=== PATIENT | female | born 1980 | race Caucasian/White ===

== ENCOUNTER 2017-04-21 17:32 | Emergency (ER) | payer OTHER ==
[~2017-04-21] VITALS: Ht 157.5 cm; Wt 105.5 kg
[~2017-04-21 17:32] MED LIST: ALBUAER2 INH; IBUP-103 PO; SYMIN/8045 INH
[2017-04-21 17:42] VITALS: TEMP 36.8; Ht 157.5 cm; Wt 105.5 kg
[2017-04-21] MEDS ORDERED: SODIUM CHLORIDE 0.9% 1000ML 1,000 ML IV STA (18:17)
[2017-04-21] MEDS ORDERED: MOME200A INH (18:20)
[2017-04-21] MEDS ORDERED: MONT1TAB3 PO (18:21)
[2017-04-21 18:50] LABS: BASO % 0.5 %; BASO ABS # 0.05 K/uL (0-0.2); COMPLETE YES; EOS % 2.5 %; HEMATOCRIT 39.4 % (37-47); IG% 0.6 %; LYMPH % 27.4 %; LYMPH ABS # 3.01 K/uL (1.2-3.4); MEAN CELL VOLUME 91.8 fL (80-100); MEAN CORPUSCULAR HEMOGLOBIN 28.9 pg (25-34); MEAN CORPUSCULAR HGB CONC 31.5 g/dl (32-36); MEAN PLATELET VOLUME 10.4 fL (7.4-10.4); MONO % 5.9 %; NEUT % 63.1 %; PLATELET COUNT 187 K/uL (130-400); RED BLOOD COUNT 4.29 M/uL (4.2-5.4); WHITE BLOOD COUNT 10.99 K/uL (4.8-10.8)
[2017-04-21 19:03] LABS: URINE APPEARANCE CLEAR (CLEAR); URINE BILIRUBIN NEG (NEG); URINE COLOR YELLOW; URINE EPITHELIAL CELL AUTO 20-30 /lpf (0-5); URINE NITRITE NEG (NEG); URINE SPECIFIC GRAVITY 1.028 (1.000-1.030); UROBILINOGEN NEG (NEG)
[2017-04-21 19:14] LABS: ALT/SGPT 24 U/L (12-78); AST/SGOT 16 U/L (15-37); BLOOD UREA NITROGEN 16 mg/dl (7-18); BUN/CREATININE RATIO 21.9 (10-20); CALCIUM 8.5 mg/dl (8.5-10.1); CARBON DIOXIDE 27 mmol/L (21-32); CHLORIDE 107 mmol/L (98-107); CREATININE 0.72 mg/dl (0.60-1.20); GLUCOSE 97 mg/dl (70-99); POTASSIUM 3.9 mmol/L (3.5-5.1); SODIUM 140 mmol/L (136-145)
[2017-04-21 19:16] LABS: ALKALINE PHOSPHATASE 77 U/L (45-117)
[2017-04-21 19:18] LABS: MANUAL MICROSCOPIC REQUIRED? NO; REVIEW REQ? NO
--- NOTE | 2017-04-21 19:48 | EMERGENCY ROOM VISIT NOTE ---
History First contact with patient: 17:56 Chief Complaint: HYPERTENSION Stated Complaint: SENT BY DOCTOR History of Present Illness The patient is a 36 year old female who presents to the Emergency Room with complaints of headache. Patient states this morning at about 8 AM she started feeling dizzy, nauseated, and had loss of vision in her left eye with decreased vision in her right eye. She also had associated numbness of her left face, as well as tingling in her left leg and right arm. She states her symptoms lasted for approximately 2-1/2 hours and then resolved. After her symptoms resolve she began to develop a mild headache that she describes as a squeezing, constant , nothing makes it better or worse, and 3/10. She states she thought she might be getting a headache when her symptoms started so she took ibuprofen this morning at 8:30 AM. She has not taken anything since that time. She does not have a history of diagnosed migraines, but does get frequent headaches similar to this, though she states she has never had any of these other symptoms with her vision or the numbness/tingling. She states she was at work when this started, had her blood pressure checked and it was elevated with the top number in the 150s. She does not have any diagnosed history of hypertension and states her blood pressure usually runs low. She did see her PCP today who sent her to the emergency department to have an MRI done. She denies any neck pain, back pain, current blurry or double vision, fevers or chills, nausea or vomiting , chest pain, shortness of breath, abdominal pain, urinary symptoms, or rash. Review of Systems A complete 10 point review of systems was reviewed with the patient with pertinent positives and negatives as per history of present illness. All else were negative. Past Medical/Surgical History Medical Problems: (1) arrest of descent (2) Asthma, Unspecified, W (Acute) Exacerbation (3) Lumbago (4) Morbid Obesity Surgical Problems: (1) History of appendectomy (2) History of delivery Social History Smoking Status: Never Smoker Alcohol Use: occasionally Marital Status: Housing Status: lives with family Occupation Status: employed Current/Historical Medications Scheduled Albuterol (Ventolin Hfa), 2 PUFFS INH DIRECTED Mometasone Furoate-Formoterol (Dulera 200/5 Mcg), 2 PUFFS INH BID Montelukast Sodium (Singulair), 10 MG PO QAM Physical Exam Vital Signs Date Time Temp Pulse Resp B/P (MAP) Pulse Ox O2 Delivery O2 Flow Rate FiO2 04/21/17 23:36 83 97 04/21/17 23:31 133/93 04/21/17 23:21 83 98 04/21/17 23:06 76 98 04/21/17 23:01 123/80 04/21/17 22:51 75 99 04/21/17 22:36 74 99 04/21/17 22:31 78 121/87 99 04/21/17 22:16 88 100 04/21/17 22:01 79 121/84 99 04/21/17 21:46 76 99 04/21/17 21:41 73 99 04/21/17 21:39 147/90 04/21/17 20:23 149/107 04/21/17 20:11 77 100 04/21/17 20:06 128/77 04/21/17 19:18 73 100 04/21/17 19:03 69 99 04/21/17 18:58 70 18 126/82 99 Room Air 04/21/17 17:42 36.8 78 20 135/76 98 Room Air Right Eye Acuity: 20/20 -2, corrected Left Eye Acuity: 20/20, corrected Physical Exam CONSTITUTIONAL: No acute distress. Well appearing and well nourished. Alert and oriented X 4 with normal affect. HEENT: Normocephalic, atraumatic. Pupils equal, round and reactive to light, EOMI. TMs normal. Pharynx normal. Moist mucus membranes. NECK: Supple, full active range of motion without discomfort. RESPIRATORY: Clear to auscultation bilaterally with no wheezing, crackles, rhonchi or stridor. Equal expansion bilaterally. CARDIOVASCULAR: Regular rate and rhythm with no murmurs, rubs or gallops. Normal peripheral perfusion. No edema. GASTROINTESTINAL: Soft, nontender, nondistended. Bowel sounds present in all quadrants. MUSCULOSKELETAL: Full range of motion of all joints without discomfort. INTEGUMENTARY: No rash or other significant dermatologic conditions noted. NEUROLOGIC: Cranial nerves II-XII grossly intact. No focal neurologic deficits noted. Normal motor, normal sensation, normal coordination, normal speech, normal gait. Medical Decision & Procedures ER Provider Diagnostic Interpretation: CT OF THE HEAD WITHOUT CONTRAST CLINICAL HISTORY: Headache. COMPARISON STUDY: None. CT DOSE: 537.48 mGy.cm TECHNIQUE: Helical axial images of the head were obtained without IV contrast. Automated exposure control was utilized for the study. A dose lowering technique was utilized adhering to the principles of ALARA. FINDINGS: No acute intracranial hemorrhage, midline shift or mass effect is present. Ventricular system is normal. Basilar cisterns are patent. There are no extra-axial collections. Dudley-white differentiation is maintained. There are no findings to suggest acute dural sinus thrombosis or acute territorial infarct. There are no significant calvarial abnormalities. Mastoid air cells are clear. There is moderate mucosal thickening of the right sphenoid sinus. IMPRESSION: 1. No acute intracranial findings. 2. Mucosal thickening of the right sphenoid sinus. MRI OF THE BRAIN WITHOUT AND WITH IV CONTRAST CLINICAL HISTORY: Headache. COMPARISON STUDY: Head CT performed earlier today. TECHNIQUE: Utilizing a 1.5 Radha magnet and dedicated coil, multiplanar, multiecho imaging of the brain was performed pre and postcontrast administration. IV administration of 10 mL of Gadavist contrast was uneventful. FINDINGS: There are no areas of restricted diffusion. No acute intracranial hemorrhage, midline shift or mass effect is present. Ventricular system is normal. Basilar cisterns are patent. There are no extra-axial collections. Flow-voids for the major intracranial vessels are present. There is no intracranial mass or pathologic enhancement. There is moderate mucosal thickening of the right sphenoid sinus. Calvarial signal is maintained. Flow-voids for the major intracranial vessels are present. IMPRESSION: 1. Unremarkable MRI of the brain. 2. Right sphenoid sinus mucosal thickening. Laboratory Results 04/21/17 18:30 Red Blood Count 4.29, Mean Corpuscular Volume 91.8, Mean Corpuscular Hemoglobin 28.9, Mean Corpuscular Hemoglobin Concent 31.5, Mean Platelet Volume 10.4, Neutrophils (%) (Auto) 63.1, Lymphocytes (%) (Auto) 27.4, Monocytes (%) (Auto) 5.9, Eosinophils (%) (Auto) 2.5, Basophils (%) (Auto) 0.5, Neutrophils # (Auto) 6.94, Lymphocytes # (Auto) 3.01, Monocytes # (Auto) 0.65, Eosinophils # (Auto) 0.27, Basophils # (Auto) 0.05 04/21/17 18:30 Test 04/21/17 18:30 04/21/17 18:35 White Blood Count 10.99 K/uL (4.8-10.8) Red Blood Count 4.29 M/uL (4.2-5.4) Hemoglobin 12.4 g/dL (12.0-16.0) Hematocrit 39.4 % (37-47) Mean Corpuscular Volume 91.8 fL (80-100) Mean Corpuscular Hemoglobin 28.9 pg (25-34) Mean Corpuscular Hemoglobin Concent 31.5 g/dl (32-36) Platelet Count 187 K/uL (130-400) Mean Platelet Volume 10.4 fL (7.4-10.4) Neutrophils (%) (Auto) 63.1 % Lymphocytes (%) (Auto) 27.4 % Monocytes (%) (Auto) 5.9 % Eosinophils (%) (Auto) 2.5 % Basophils (%) (Auto) 0.5 % Neutrophils # (Auto) 6.94 K/uL (1.4-6.5) Lymphocytes # (Auto) 3.01 K/uL (1.2-3.4) Monocytes # (Auto) 0.65 K/uL (0.11-0.59) Eosinophils # (Auto) 0.27 K/uL (0-0.5) Basophils # (Auto) 0.05 K/uL (0-0.2) RDW Standard Deviation 51.1 fL (36.4-46.3) RDW Coefficient of Variation 15.3 % (11.5-14.5) Immature Granulocyte % (Auto) 0.6 % Immature Granulocyte # (Auto) 0.07 K/uL (0.00-0.02) Anion Gap 6.0 mmol/L (3-11) Est Creatinine Clear Calc Drug Dose 123.2 ml/min Estimated GFR () 124.9 Estimated GFR (Non- 107.7 BUN/Creatinine Ratio 21.9 (10-20) Calcium Level 8.5 mg/dl (8.5-10.1) Total Bilirubin 0.2 mg/dl (0.2-1) Direct Bilirubin < 0.1 mg/dl (0-0.2) Aspartate Amino Transf (AST/SGOT) 16 U/L (15-37) Alanine Aminotransferase (ALT/SGPT) 24 U/L (12-78) Alkaline Phosphatase 77 U/L (45-117) Total Protein 7.2 gm/dl (6.4-8.2) Albumin 3.5 gm/dl (3.4-5.0) Urine Color YELLOW Urine Appearance CLEAR (CLEAR) Urine pH 5.0 (4.5-7.5) Urine Specific [place] 1.028 (1.000-1.030) Urine Protein NEG (NEG) Urine Glucose (UA) NEG (NEG) Urine Ketones TRACE (NEG) Urine Occult Blood TRACE (NEG) Urine Nitrite NEG (NEG) Urine Bilirubin NEG (NEG) Urine Urobilinogen NEG (NEG) Urine Leukocyte Esterase NEG (NEG) Urine WBC (Auto) 1-5 /hpf (0-5) Urine RBC (Auto) 0-4 /hpf (0-4) Urine Hyaline Casts (Auto) 0 /lpf (0-5) Urine Epithelial Cells (Auto) 20-30 /lpf (0-5) Urine Bacteria (Auto) NEG (NEG) Urine Test NEG (NEG) Medications Administered Medications (Trade) Dose Ordered Sig/Adriano Route Start Time Stop Time Status Last Admin Dose Admin Sodium Chloride 1,000 ml @ 999 mls/hr Q1H1M STAT IV 04/21/17 18:17 04/21/17 19:17 DC 04/21/17 19:00 999 MLS/HR ECG Indication: other (hypertension) Rate (beats per minute): 67 Rhythm: normal sinus Findings: no acute ischemic change, no ectopy, other (rightward axis deviation) Change: no significant change (08/17/2010) Medical Decision CC: Patient presenting with complaint of headache and hypertension Interpretation of Labs: Mild leukocytosis, no anemia, no significant electrolyte abnormalities, normal renal function, normal liver enzymes, UA unremarkable, not . Differential Diagnosis: Includes, but not limited to migraine, tension headache , TIA, CVA, intracranial hemorrhage, aneurysm Medication Reconciliation: I attest that I have personally reviewed the patient' s current medication list. Vital signs review: I reviewed the patient's vital signs and interpret them as follows: T: Afebrile; BP: Hypertensive; HR: Within normal limits; RR: Within normal limits; Pulse Ox: Within normal limits on room air. Blood pressure screening: The patient was found to have an elevated blood pressure and was referred to their primary doctor for recheck and further treatment. Summary: Patient was evaluated at bedside, history of physical exam performed. Patient is alert and in no acute distress. Neurologic exam is normal with no focal deficits. Patient complains of a mild headache with photophobia. She denies any return of her other symptoms of visual changes, dizziness, nausea, or numbness/ tingling. Orders were placed at bedside for labs, urinalysis, EKG, IV fluid bolus, noncontrast CT of the brain, and MRI with and without contrast of the brain to evaluate for ICH/CVA. Patient discussed with Dr. Mukherjee, who agrees with my assessment and plan. Labs reviewed as above, fairly unremarkable. EKG reviewed, no acute ischemic changes and unchanged from previous EKG. CT imaging and MRI imaging reviewed, no acute abnormalities, specifically no sign of intracranial hemorrhage or stroke. I believe patient's symptoms may be related to an atypical presentation of migraine, given the onset of headache after the initial symptoms resolved. Unsure of the cause of elevated blood pressure, but no concerning EKG or lab findings at this time. Patient reassessed multiple times throughout ED stay, her headache is resolved after IV fluid bolus only and she reports all of her other symptoms have remained gone. Patient was instructed to follow closely with her PCP, and was also provided with contact for neurology. Patient was also instructed on return precautions should her symptoms return/ worsen, she verbalized understanding. Patient was discharged home in stable condition and ambulatory. Impression Primary Impression: Atypical migraine Departure Information Dispostion Home / Self-Care Condition GOOD Referrals Barb Anders M.D. (PCP) Neda Ochoa D.O. Patient Instructions ED Headache Migraine, My [facility] Additional Instructions Rest today and tomorrow in a quiet, peaceful, dark environment and get a full 8- 10 hrs of sleep tonight. Avoid loud noises, smoke/smoking, alcohol, bright lights, stress, or physical exertion today to minimize the chance the headache may return. Continue current medications as prescribed. Ibuprofen(Motrin, Advil) may be used for fever or pain. Use 600mg every six hours as needed. Take with food. Avoid using more than 2400mg in a 24 hour period. Do not use 2400mg per day for more than three consecutive days without physician direction. Prolonged inappropriate use can lead to stomach upset or ulcers. (AND/OR) Acetaminophen(Tylenol) may be used for fever or pain. Use 1000mg every 8 hours as needed. Avoid using more than 3000mg in a 24 hour period. Return to the ER for passing out, worsening headache, vision problems, numbness or weakness on one side of the body, slurring of your words, confusion, neck stiffness/pain, fevers, vomiting, worsening of your condition, or as needed. Follow up with your primary physician in 2-3 days for a recheck of your current condition. You may also follow-up with a neurologist regarding her symptoms, call for an appointment.
--- NOTE | 2017-04-21 20:01 | DIAGNOSTIC IMAGING REPORT ---
CT OF THE HEAD WITHOUT CONTRAST CLINICAL HISTORY: Headache. COMPARISON STUDY: None. CT DOSE: 537.48 mGy.cm TECHNIQUE: Helical axial images of the head were obtained without IV contrast. Automated exposure control was utilized for the study. A dose lowering technique was utilized adhering to the principles of ALARA. FINDINGS: No acute intracranial hemorrhage, midline shift or mass effect is present. Ventricular system is normal. Basilar cisterns are patent. There are no extra-axial collections. Dudley-white differentiation is maintained. There are no findings to suggest acute dural sinus thrombosis or acute territorial infarct. There are no significant calvarial abnormalities. Mastoid air cells are clear. There is moderate mucosal thickening of the right sphenoid sinus. IMPRESSION: 1. No acute intracranial findings. 2. Mucosal thickening of the right sphenoid sinus. Electronically signed by: Scott Burns M.D. 04/21/2017 8:00 PM Dictated Date/Time: 04/21/2017 7:58 PM
[2017-04-21] MEDS ORDERED: GADAVIST IV PRN (21:15)
--- NOTE | 2017-04-21 21:47 | DIAGNOSTIC IMAGING REPORT ---
MRI OF THE BRAIN WITHOUT AND WITH IV CONTRAST CLINICAL HISTORY: Headache. COMPARISON STUDY: Head CT performed earlier today. TECHNIQUE: Utilizing a 1.5 Radha magnet and dedicated coil, multiplanar, multiecho imaging of the brain was performed pre and postcontrast administration. IV administration of 10 mL of Gadavist contrast was uneventful. FINDINGS: There are no areas of restricted diffusion. No acute intracranial hemorrhage, midline shift or mass effect is present. Ventricular system is normal. Basilar cisterns are patent. There are no extra-axial collections. Flow-voids for the major intracranial vessels are present. There is no intracranial mass or pathologic enhancement. There is moderate mucosal thickening of the right sphenoid sinus. Calvarial signal is maintained. Flow-voids for the major intracranial vessels are present. IMPRESSION: 1. Unremarkable MRI of the brain. 2. Right sphenoid sinus mucosal thickening. Electronically signed by: Scott Burns M.D. 04/21/2017 9:46 PM Dictated Date/Time: 04/21/2017 9:40 PM
[2017-04-21 23:31] VITALS: BP 133/93
[2017-04-21 23:36] VITALS: PULSE 83; O2SAT 97
== END 2017-04-21 23:43 | disposition home or self-care (01) ==
LOC: C.EDB 17:34
DX: G43.909 Migraine, unspecified, not intractable, without status migrainosus (principal); J45.909 Unspecified asthma, uncomplicated; Z90.89 Acquired absence of other organs; Z98.891 History of uterine scar from previous surgery

== ENCOUNTER 2017-09-18 22:02 | Emergency (ER) | payer OTHER ==
[~2017-09-18] VITALS: Ht 152.4 cm; Wt 111.9 kg
[~2017-09-18 22:02] MED LIST changes: -IBUP-103 PO; +MOME200A INH; +MONT1TAB3 PO; -SYMIN/8045 INH
[2017-09-18 22:05] VITALS: TEMP 37; Ht 152.4 cm; Wt 111.9 kg
[2017-09-18] MEDS ORDERED: SEPTRA DS HOME PACK 1 EA VIAL PO ONE (22:30)
[2017-09-18] MEDS ORDERED: PHENAZOPYRIDINE HOME PACK 200 MG VIAL PO ONE (22:30)
[2017-09-18] MEDS ORDERED: SULF800T23 PO (22:30)
[2017-09-18] MEDS ORDERED: PRVHFAIN INH (22:35)
[2017-09-18 23:04] VITALS: BP 138/75; PULSE 85; O2SAT 98
--- NOTE | 2017-09-19 02:33 | EMERGENCY ROOM VISIT NOTE ---
ED Visit Note First contact with patient: 22:10 CHIEF COMPLAINT: Frequent and painful urination HISTORY OF PRESENT ILLNESS: This 37-year-old female presents to the emergency department complaining of increased frequency of urination, burning pain with urination, and a feeling of incomplete voiding for the past 3-4 days. The patient passes very small volumes of urine with each episode of voiding. The patient does not have abdominal pain. They deny back pain, fever, or vaginal discharge. The patient has not frequent urinary tract infections in the past. Patient feels they are not at risk for STIs. REVIEW OF SYSTEMS: A 6 system review of systems was completed with positives and pertinent negatives listed in the HPI. ALLERGIES: Penicillin MEDICATIONS: See EMR PMH: See EMR SOCIAL HISTORY: Lives with family PHYSICAL EXAM: Vital Signs: Reviewed Nurse's notes, vital signs stable. GENERAL : Female, in no acute distress, they do not appear toxic, well-developed, well- nourished. HEART: Regular rate and rhythm without murmur gallop or rub LUNG: Clear to auscultation bilateral ABDOMEN: Positive bowel sounds x 4. The abdomen is soft, mildly tender in the suprapubic area, but no masses or organs are felt. There is no CVA tenderness. The skin is clear. NEURO: Alert and oriented to person place and time. EMERGENCY DEPARTMENT COURSE: Physical exam and history were performed. Nursing notes and EMR were reviewed. The patient is describing UTI symptoms. She was able to provide a urine here in the department, which was with nitrates , esterase, and bacteria concerning for infection. The patient will be started on Bactrim and Pyridium. She is to follow with her primary care physician for further management. She was otherwise invited back to the ER with any new, worsening, or concerning symptoms. Problem List Surgical Problems: (1) History of appendectomy Status: Resolved (2) History of delivery Status: Resolved Current/Historical Medications Scheduled Mometasone Furoate-Formoterol (Dulera 200/5 Mcg), 2 PUFFS INH BID Sulfa/Trimethoprim (Bactrim Ds 800MG/160MG), 1 TAB PO BID Scheduled PRN Albuterol (Ventolin Hfa), 2 PUFFS INH UD PRN for SOB/Wheezing Allergies Coded Allergies: Amoxicillin (Verified Allergy, Unknown, METALLIC TASTE, NAUSEATED, ) Clavulanic Acid (Verified Allergy, Unknown, METALLIC TASTE, NAUSEATED, ) Penicillins (Verified Allergy, Unknown, Unknown, 09/18/17) Not for sure if this is an allergy Vital Signs Date Time Temp Pulse Resp B/P (MAP) Pulse Ox O2 Delivery O2 Flow Rate FiO2 09/18/17 23:04 85 18 138/75 98 09/18/17 22:05 37.0 82 18 155/80 94 Room Air Departure Information Impression Primary Impression: Urinary tract infection Dispostion Home / Self-Care Condition GOOD Prescriptions Sulfa/Trimethoprim (Bactrim Ds 800MG/160MG) Tab 1 TAB PO BID for 9 Days, #18 TAB Prov: Patricio Dc PA-C 09/18/17 Forms HOME CARE DOCUMENTATION FORM, IMPORTANT VISIT INFORMATION Patient Instructions My [facility] Additional Instructions You were seen and evaluated today on an emergency basis only. This is not a substitute for, or an effort to provide, complete comprehensive medical care. It is not possible to recognize and treat all injuries or illnesses in a single emergency department visit. For this reason it is recommended that you followup with your primary care physician with any ongoing or persistent symptoms. Trimethoprim-Sulfamethoxazole(Bactrim DS): Take one pill twice daily for 10 days for your urine infection. All antibiotics can cause diarrhea. If this occurs and you feel worse or it does not resolve in 1-2 days follow up with your doctor or return to the Emergency Department as this could be signs of serious underlying problems. Any medication can cause an allergic reaction, stop the pills immediately and return to the ER for rash, hives, breathing difficulties, or swelling. You are welcome to return to the emergency department anytime with new, worsening, or concerning symptoms.
== END 2017-09-18 22:57 | disposition home or self-care (01) ==
LOC: C.EDB 22:03 → C.EDA 22:57
DX: N39.0 Urinary tract infection, site not specified (principal)

== ENCOUNTER → 2017-11-28 | Outpatient (CLI) | payer OTHER ==
[~2017-11-28] MED LIST changes: -ALBUAER2 INH; -MONT1TAB3 PO; +PRVHFAIN INH
== END | disposition home or self-care (01) ==
LOC: C.LABSPEC 11:07
PROVIDERS: ATTEND Obstetrics & Gynecology
DX: O09.521 Supervision of elderly multigravida, first trimester (principal)

== ENCOUNTER → 2017-12-05 | Outpatient (CLI) | payer OTHER ==
[~2017-12-05] MED LIST changes: +PRENTAB26 PO; +VNTHFA/IN INH
== END | disposition home or self-care (01) ==
LOC: C.PAPS 10:57
PROVIDERS: ATTEND Obstetrics & Gynecology
DX: Z12.4 Encounter for screening for malignant neoplasm of cervix (principal)

== ENCOUNTER → 2017-12-05 | Outpatient (CLI) | payer OTHER ==
[2017-12-05 09:55] LABS: HEMATOCRIT 36.9 % (37-47); MEAN CELL VOLUME 85.4 fL (80-100); MEAN CORPUSCULAR HEMOGLOBIN 27.8 pg (25-34); MEAN CORPUSCULAR HGB CONC 32.5 g/dl (32-36); PLATELET COUNT 69 K/uL (130-400); RED CELL DISTRIBUTION WIDTH CV 17.1 % (11.5-14.5); RED CELL DISTRIBUTION WIDTH SD 53.7 fL (36.4-46.3)
[2017-12-05 09:57] LABS: BASO % 0.3 %; BASO ABS # 0.03 K/uL (0-0.2); EOS ABS # 0.23 K/uL (0-0.5); IG# 0.19 K/uL (0.00-0.02); LYMPH ABS # 1.75 K/uL (1.2-3.4); MONO ABS # 0.47 K/uL (0.11-0.59); NEUT % 77.1 %; NEUT ABS # 9.03 K/uL (1.4-6.5)
== END | disposition home or self-care (01) ==
LOC: C.LAB1850 08:50
PROVIDERS: ATTEND Obstetrics & Gynecology
DX: O09.521 Supervision of elderly multigravida, first trimester (principal); Z3A.00 Weeks of gestation of pregnancy not specified

== ENCOUNTER 2017-12-12 19:53 | Emergency (ER) | payer OTHER ==
[~2017-12-12] VITALS: Ht 152.4 cm; Wt 113.9 kg
[~2017-12-12 19:53] MED LIST changes: -PRENTAB26 PO; -VNTHFA/IN INH
[2017-12-12 19:55] VITALS: TEMP 36.9
[2017-12-12] MEDS ORDERED: SODIUM CHLORIDE 0.9% 1000ML 1,000 ML IV STA (20:18)
[2017-12-12] MEDS ORDERED: VNTHFA/IN INH (20:36)
[2017-12-12] MEDS ORDERED: PRENTAB26 PO (20:36)
[2017-12-12 20:45] VITALS: Ht 152.4 cm; Wt 113.9 kg
--- NOTE | 2017-12-12 20:50 | EMERGENCY ROOM VISIT NOTE ---
History Report prepared by Casper: Adelia Lara Under the Supervision of: Dr. Raghavendra Killian M.D. First contact with patient: 20:11 Chief Complaint: ED VAG BLEEDING Stated Complaint: 10 WKS ,BLEEDING ALOT History of Present Illness The patient is a 37 year old female who presents to the Emergency Room with complaints of persistent vaginal bleeding that began about 30 minutes prior to arrival. 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 The patient reports that she has been experiencing a slight but constant left sided abdominal cramp all day. She states that she went to the bathroom during her shift because she felt like she was bleeding, noting that she passed a blood clot but no stool. The patient has been wearing a menstrual pad since she passed the blood clot, noting she has not noticed any further bleeding. She reports she currently has a cold, but denies any body aches, headaches, dizziness, or recent intercourse. The patient notes that she had an ultrasound performed by her OB one week ago, which showed her was going well. She reports that this is her second and that while she was with her first child she had vaginal bleeding around the same time. The patient was put on pelvic/bed rest during her first trimester. Source of History: patient Onset: 30 minutes prior to arrival Position: other (genitals) Quality: other (vaginal bleeding) Timing: other (persistent) Associated Symptoms: No headache Note: Associated symptoms include: left sided abdominal cramp Denies: body aches, dizziness, or recent intercourse Review of Systems See HPI for pertinent positives and negatives. A total of ten systems were reviewed and were otherwise negative. Past Medical & Surgical Medical Problems: (1) arrest of descent (2) Asthma, Unspecified, W (Acute) Exacerbation (3) Lumbago (4) Morbid Obesity Surgical Problems: (1) History of appendectomy (2) History of delivery Family History Patient reports no known family medical history. No pertinent family history. Social History Smoking Status: Never Smoker Smokeless Tobacco Use: No Alcohol Use: occasionally Drug Use: none Marital Status: Housing Status: lives with family Occupation Status: employed Current/Historical Medications Scheduled Mometasone Furoate-Formoterol (Dulera 200/5 Mcg), 2 PUFFS INH BID Multivit/Min/Iron/Fol Ac/Pren ( Vitamin), 1 TAB PO DAILY Scheduled PRN Albuterol Hfa (Ventolin Hfa), 2 PUFFS INH Q4H PRN for Wheezing Allergies Coded Allergies: Amoxicillin (Verified Allergy, Unknown, METALLIC TASTE, NAUSEATED, ) Clavulanic Acid (Verified Allergy, Unknown, METALLIC TASTE, NAUSEATED, ) Penicillins (Verified Allergy, Unknown, Unknown, 09/18/17) Not for sure if this is an allergy Physical Exam Vital Signs Date Time Temp Pulse Resp B/P (MAP) Pulse Ox O2 Delivery O2 Flow Rate FiO2 12/12/17 23:26 88 20 128/77 98 12/12/17 22:22 82 16 134/76 97 Room Air 12/12/17 19:55 36.9 99 16 130/82 97 Room Air Physical Exam GENERAL: Awake, alert, fatigued-appearing, in no distress HENT: Dry mucous membranes. Normocephalic, atraumatic. Oropharynx unremarkable. EYES: Normal conjunctiva. Sclera non-icteric. NECK: Supple. No nuchal rigidity. FROM. No JVD. RESPIRATORY: Clear to auscultation. CARDIAC: Regular rate, normal rhythm. Extremities warm and well perfused. Pulses equal. ABDOMEN: Soft, non-distended. No tenderness to palpation. No rebound or guarding. No masses. PELVIC: No bloody discharge and closed os. RECTAL: Deferred. MUSCULOSKELETAL: Chest examination reveals no tenderness. The back is symmetrical on inspection without obvious abnormality. There is no CVA tenderness to palpation. No joint edema. LOWER EXTREMITIES: Calves are equal size bilaterally and non-tender. No edema. No discoloration. NEURO: Normal sensorium. No sensory or motor deficits noted. SKIN: No rash or jaundice noted. Medical Decision & Procedures ER Provider Diagnostic Interpretation: Radiology results as stated below per my review and radiologist interpretation: ULTRASOUND CLINICAL HISTORY: Vaginal bleeding. COMPARISON STUDY: ultrasound 04/26/2013. FINDINGS: Transabdominal and transvaginal scanning of the pelvis was performed. There are a few small nabothian cysts. The cervix is normal in length and appears closed. There is a single intrauterine gestational sac containing a single fetus with a crown-rump length of 3.1 cm. This is consistent with a 10 week and 0 day intrauterine gestation. heart rate measured between 179 and 188 bpm. Normal yolk sac is identified. Tiny subchorionic hematoma along the inferior aspect of the gestational sac measuring 1 cm. This is considered to be within the range of normal limits. This does not result in significant mass effect. Normal right ovary. The left ovary was not identified due to overlying bowel gas. IMPRESSION: A single viable 10 week and 0 day intrauterine gestation. heart rate measured between 179 and 188 bpm. Electronically signed by: Kamran Brown M.D. 12/12/2017 10:02 PM Dictated Date/Time: 12/12/2017 9:59 PM Laboratory Results 12/12/17 20:38 Red Blood Count 4.60, Mean Corpuscular Volume 86.7, Mean Corpuscular Hemoglobin 28.5, Mean Corpuscular Hemoglobin Concent 32.8, Neutrophils (%) (Auto) 75.5, Lymphocytes (%) (Auto) 16.0, Monocytes (%) (Auto) 4.7, Eosinophils (%) (Auto) 1.7, Basophils (%) (Auto) 0.3, Neutrophils # (Auto) 10.78, Lymphocytes # (Auto) 2.28, Monocytes # (Auto) 0.67, Eosinophils # (Auto) 0.24, Basophils # (Auto) 0.04 12/12/17 20:38 Test 12/12/17 20:34 12/12/17 20:38 Urine Color YELLOW Urine Appearance CLEAR (CLEAR) Urine pH 6.5 (4.5-7.5) Urine Specific [place] 1.028 (1.000-1.030) Urine Protein NEG (NEG) Urine Glucose (UA) NEG (NEG) Urine Ketones TRACE (NEG) Urine Occult Blood 1+ (NEG) Urine Nitrite NEG (NEG) Urine Bilirubin NEG (NEG) Urine Urobilinogen NEG (NEG) Urine Leukocyte Esterase NEG (NEG) Urine WBC (Auto) 1-5 /hpf (0-5) Urine RBC (Auto) 0-4 /hpf (0-4) Urine Hyaline Casts (Auto) 1-5 /lpf (0-5) Urine Epithelial Cells (Auto) >30 /lpf (0-5) Urine Bacteria (Auto) NEG (NEG) Urine Test POS (NEG) Influenza Type A Antigen Neg for Influ A (NEG) Influenza Type B Antigen Neg for Influ B (NEG) White Blood Count 14.27 K/uL (4.8-10.8) Red Blood Count 4.60 M/uL (4.2-5.4) Hemoglobin 13.1 g/dL (12.0-16.0) Hematocrit 39.9 % (37-47) Mean Corpuscular Volume 86.7 fL (80-100) Mean Corpuscular Hemoglobin 28.5 pg (25-34) Mean Corpuscular Hemoglobin Concent 32.8 g/dl (32-36) Platelet Count 68 K/uL (130-400) Neutrophils (%) (Auto) 75.5 % Lymphocytes (%) (Auto) 16.0 % Monocytes (%) (Auto) 4.7 % Eosinophils (%) (Auto) 1.7 % Basophils (%) (Auto) 0.3 % Neutrophils # (Auto) 10.78 K/uL (1.4-6.5) Lymphocytes # (Auto) 2.28 K/uL (1.2-3.4) Monocytes # (Auto) 0.67 K/uL (0.11-0.59) Eosinophils # (Auto) 0.24 K/uL (0-0.5) Basophils # (Auto) 0.04 K/uL (0-0.2) RDW Standard Deviation 54.1 fL (36.4-46.3) RDW Coefficient of Variation 17.0 % (11.5-14.5) Immature Granulocyte % (Auto) 1.8 % Immature Granulocyte # (Auto) 0.26 K/uL (0.00-0.02) Platelet Estimate DECREASED Prothrombin Time 9.9 SECONDS (9.0-12.0) Prothromb Time International Ratio 0.9 (0.9-1.1) Activated Partial Thromboplast Time 23.8 SECONDS (21.0-31.0) Partial Thromboplastin Ratio 0.9 Anion Gap 8.0 mmol/L (3-11) Est Creatinine Clear Calc Drug Dose 152.8 ml/min Estimated GFR () 136.5 Estimated GFR (Non- 117.8 BUN/Creatinine Ratio 18.8 (10-20) Calcium Level 9.2 mg/dl (8.5-10.1) Total Bilirubin 0.2 mg/dl (0.2-1) Aspartate Amino Transf (AST/SGOT) 12 U/L (15-37) Alanine Aminotransferase (ALT/SGPT) 23 U/L (12-78) Alkaline Phosphatase 69 U/L (45-117) Total Protein 7.7 gm/dl (6.4-8.2) Albumin 3.4 gm/dl (3.4-5.0) Globulin 4.3 gm/dl (2.5-4.0) Albumin/Globulin Ratio 0.8 (0.9-2) Human Chorionic Gonadotropin, Quant 44963 mIU/mL Laboratory results reviewed by me Medications Administered Medications (Trade) Dose Ordered Sig/Adriano Route Start Time Stop Time Status Last Admin Dose Admin Sodium Chloride 1,000 ml @ 999 mls/hr Q1H1M STAT IV 12/12/17 20:18 12/12/17 21:18 DC 12/12/17 20:45 999 MLS/HR ED Course 2016: The patient was evaluated in room B5. A complete history and physical exam was performed. 2218: I reevaluated the patient, who was resting comfortably. I updated her on some test findings. 2246: I reevaluated the patient and performed a pelvic exam with nursing staff present. 2254: Discussed the patient's case with Dr. Carter, [facility]. He suggests that there is no additional evaluation or treatment required and the patient can follow up as scheduled with the clinic. 2323: I reevaluated the patient. Discussed results and discharge instructions: she verbalized understanding and agreement. The patient is ready for discharge. Medical Decision I reviewed the patient's past medical history, medications, and the nursing notes as described above. Differential diagnosis: Etiologies such as ectopic , dysfunction uterine bleeding, bleeding dyscrasia, trauma, infection, as well as others were entertained. 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 On arrival the patient is in NAD, AFVSS. Labs demonstrate thrombocytopenia 68 similar to recent outpatient labs. Labs otherwise unremarkable. Rh+, TVUS demonstrates viable 10 week fetus with FHR 170s. Small subchorionic hematoma. Pelvic exam with no evidence of active bleeding. Closed Os. Findings d/w Dr. Carter, OB on- call, who agrees no need for further evaluation or intervention at this time, given patient in first trimester. Recommends f/u as scheduled. Otherwise, will provide patient with hematology referral given patient's new thrombocytopenia. LFTs otherwise unremarkable. UA negative for UTI or protein. Findings and plan for follow-up reviewed with patient. Patient agreeable and d/c'd per discharge instructions. Medication Reconcilliation Current Medication List: was personally reviewed by me Blood Pressure Screening Patient's blood pressure: Normal blood pressure Blood pressure disposition: Did not require urgent referral Consults Time Called: 2253 Consulting Physician: LEIF Valenzuela Returned Call: [phone] Discussed the patient's case with PRAVEEN Valenzuela. He suggests that there is no additional evaluation or treatment required and the patient can follow up as scheduled with the clinic. Impression Primary Impression: Vaginal bleeding in Additional Impressions: Subchorionic hematoma Thrombocytopenia Scribe Attestation The scribe's documentation has been prepared under my direction and personally reviewed by me in its entirety. I confirm that the note above accurately reflects all work, treatment, procedures, and medical decision making performed by me. Departure Information Dispostion Home / Self-Care Referrals Tiffany Hamilton M.D. (PCP) Marvin Werner D.O. 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 You should also follow up with hematology, Dr. Werner, for further evaluation of your low platelets, which could predispose you to bleeding. Otherwise, your exam, lab results, and ultrasound did not show signs of an emergent condition at this time. Drink plenty of fluids to ensure hydration. Return to the emergency department for worsening symptoms as described in the accompanying instructions. Problem Qualifiers
[2017-12-12 21:01] LABS: MEAN CORPUSCULAR HGB CONC 32.8 g/dl (32-36)
[2017-12-12 21:09] LABS: INR 0.9 (0.9-1.1); PTT PATIENT 23.8 SECONDS (21.0-31.0)
[2017-12-12 21:18] LABS: ALBUMIN 3.4 gm/dl (3.4-5.0); CALCIUM 9.2 mg/dl (8.5-10.1); CREATININE 0.58 mg/dl (0.60-1.20); POTASSIUM 3.8 mmol/L (3.5-5.1)
[2017-12-12 21:21] LABS: INFLUENZA B ANTIGEN Neg for Influ B (NEG)
[2017-12-12 21:21] LABS: TOTAL PROTEIN 7.7 gm/dl (6.4-8.2)
[2017-12-12 21:24] LABS: HEMATOCRIT 39.9 % (37-47); HEMOGLOBIN 13.1 g/dL (12.0-16.0); MEAN CELL VOLUME 86.7 fL (80-100); MEAN CORPUSCULAR HEMOGLOBIN 28.5 pg (25-34); RED CELL DISTRIBUTION WIDTH SD 54.1 fL (36.4-46.3); WHITE BLOOD COUNT 14.27 K/uL (4.8-10.8)
[2017-12-12 21:51] LABS: PLATELET COUNT 68 K/uL (130-400)
[2017-12-12 21:53] LABS: BASO % 0.3 %; BASO ABS # 0.04 K/uL (0-0.2); EOS % 1.7 %; EOS ABS # 0.24 K/uL (0-0.5); IG# 0.26 K/uL (0.00-0.02); LYMPH ABS # 2.28 K/uL (1.2-3.4); MONO % 4.7 %; MONO ABS # 0.67 K/uL (0.11-0.59); NEUT % 75.5 %; NEUT ABS # 10.78 K/uL (1.4-6.5)
--- NOTE | 2017-12-12 22:04 | DIAGNOSTIC IMAGING REPORT ---
ULTRASOUND CLINICAL HISTORY: Vaginal bleeding. COMPARISON STUDY: ultrasound 04/26/2013. FINDINGS: Transabdominal and transvaginal scanning of the pelvis was performed. There are a few small nabothian cysts. The cervix is normal in length and appears closed. There is a single intrauterine gestational sac containing a single fetus with a crown-rump length of 3.1 cm. This is consistent with a 10 week and 0 day intrauterine gestation. heart rate measured between 179 and 188 bpm. Normal yolk sac is identified. Tiny subchorionic hematoma along the inferior aspect of the gestational sac measuring 1 cm. This is considered to be within the range of normal limits. This does not result in significant mass effect. Normal right ovary. The left ovary was not identified due to overlying bowel gas. IMPRESSION: A single viable 10 week and 0 day intrauterine gestation. heart rate measured between 179 and 188 bpm. Electronically signed by: Kamran Brown M.D. 12/12/2017 10:02 PM Dictated Date/Time: 12/12/2017 9:59 PM
[2017-12-12 23:26] VITALS: BP 128/77; PULSE 88; O2SAT 98
== END 2017-12-12 23:28 | disposition home or self-care (01) ==
LOC: C.EDB 19:54
DX: O20.8 Other hemorrhage in early pregnancy (principal); O99.111 Other diseases of the blood and blood-forming organs and certain disorders involving the immune mechanism complicating pregnancy, first trimester; O99.511 Diseases of the respiratory system complicating pregnancy, first trimester; D69.6 Thrombocytopenia, unspecified; J45.909 Unspecified asthma, uncomplicated; Z3A.10 10 weeks gestation of pregnancy; Z88.1 Allergy status to other antibiotic agents; Z88.0 Allergy status to penicillin

== ENCOUNTER 2017-12-23 16:10 | Emergency (ER) | payer OTHER ==
[~2017-12-23] VITALS: Ht 152.4 cm; Wt 112.0 kg
[2017-12-23 16:14] VITALS: TEMP 37.5; Ht 152.4 cm; Wt 112.0 kg
[2017-12-23] MEDS ORDERED: SODIUM CHLORIDE 0.9% 1000ML 1,000 ML IV STA (16:27)
--- NOTE | 2017-12-23 16:43 | EMERGENCY ROOM VISIT NOTE ---
History Report prepared by Casper: Marita Leal Under the Supervision of: Dr. Jodi Montalvo M.D. First contact with patient: 16:24 Chief Complaint: ED VAG BLEEDING Stated Complaint: 11 WKS PREG PASSING LARGE CLOTS BLEEDING History of Present Illness The patient is a 37 year old female who presents to the Emergency Room with complaints of vaginal bleeding beginning this morning. She reports that she has had spotting for 2 weeks, but has not had any in the past week. She reports that this morning she felt "a gush" and passed large clots but does not know if she passed any tissue. She is currently 11 weeks . Her OBGYN recommended she come in today for an ultrasound. Patient also spoke with Dr. Rebollar of hematology who recommended an emergency dept evaluation. Pt denies any abdominal pain. She is accompanied by her mother who notes that she has ITP with her current . She has a history of ITP with platelet count of 53 earlier today. Her blood type is O positive. Source of History: patient, parent (mother) Onset: this morning Position: other (vaginal bleeding) Quality: other (bleeding) Timing: other (bleeding) Associated Symptoms: No abdominal pain Review of Systems See HPI for pertinent positives & negatives. A total of 10 systems reviewed and were otherwise negative. Past Medical & Surgical Medical Problems: (1) arrest of descent (2) Asthma, Unspecified, W (Acute) Exacerbation (3) Lumbago (4) Morbid Obesity Surgical Problems: (1) History of appendectomy (2) History of delivery Family History Patient reports no known family medical history. Social History Smoking Status: Never Smoker Alcohol Use: occasionally Drug Use: none Housing Status: lives with family Occupation Status: employed Current/Historical Medications Scheduled Mometasone Furoate-Formoterol (Dulera 200/5 Mcg), 2 PUFFS INH BID Multivit/Min/Iron/Fol Ac/Pren ( Vitamin), 1 TAB PO DAILY Scheduled PRN Albuterol Hfa (Ventolin Hfa), 2 PUFFS INH Q4H PRN for Wheezing Allergies Coded Allergies: Amoxicillin (Verified Allergy, Unknown, METALLIC TASTE, NAUSEATED, 12/23/17 ) Clavulanic Acid (Verified Allergy, Unknown, METALLIC TASTE, NAUSEATED, ) Penicillins (Verified Allergy, Unknown, Unknown, 12/23/17) Not for sure if this is an allergy Physical Exam Vital Signs Date Time Temp Pulse Resp B/P (MAP) Pulse Ox O2 Delivery O2 Flow Rate FiO2 12/23/17 20:14 98 18 120/76 96 12/23/17 19:04 95 18 127/72 97 Room Air 12/23/17 16:14 37.5 95 16 150/91 97 Room Air Physical Exam Vital signs reviewed. General: Morbidly obese-appearing female, in no significant distress. HEENT: No scleral icterus, PERRLA, neck supple. Atraumatic. Cardiovascular: Regular rate and rhythm, no extra sounds. Pulmonary: Clear to auscultation bilaterally, normal work of breathing. Abdomen: Soft, nontender, nondistended, positive bowel sounds. Pelvic: Deferred to Dr Dumont. External exam reveals minimal dark vaginal blood. Musculoskeletal: Atraumatic, no peripheral edema. Neurologic: Patient awake alert and oriented x 3 Skin: Warm, dry, no rash Medical Decision & Procedures ER Provider Diagnostic Interpretation: Radiology results as stated below per my review and radiologist interpretation: ADDENDUM Conclusion should read as follows: Single, viable intrauterine of 11 weeks 5 days gestational age. heartbeat is confirmed. Small left ovarian cyst. Electronically signed by: Demarcus Jaime M.D. 12/23/2017 6:41 PM Dictated Date/Time: 12/23/2017 6:40 PM ORIGINAL REPORT <14 WKS SINGLE CLINICAL HISTORY: vag bleed, 11 weeks TECHNIQUE: Ultrasound COMPARISON STUDY: 12/12/2017 FINDINGS: Single, viable intrauterine is noted. HISTORY: Of gestational age is 11 weeks 5 days. heart rate 1 73 bpm. Right ovary is not visualized. Left ovary measures 2.4 cm and contains a 1.6 cm follicular cyst. IMPRESSION: Single, viable intrauterine of fracture in left weeks 5 days gestational age. heart rate is confirmed. Small left ovarian cyst. The above report was generated using voice recognition software. It may contain grammatical, syntax or spelling errors. Electronically signed by: Demarcus Jaime M.D. 12/23/2017 6:04 PM Dictated Date/Time: 12/23/2017 6:01 PM Laboratory Results 12/23/17 16:49 Red Blood Count 4.27, Mean Corpuscular Volume 86.4, Mean Corpuscular Hemoglobin 28.3, Mean Corpuscular Hemoglobin Concent 32.8, Neutrophils (%) (Auto) 73.7, Lymphocytes (%) (Auto) 15.0, Monocytes (%) (Auto) 7.2, Eosinophils (%) (Auto) 2.0, Basophils (%) (Auto) 0.3, Neutrophils # (Auto) 8.74, Lymphocytes # (Auto) 1.78, Monocytes # (Auto) 0.85, Eosinophils # (Auto) 0.24, Basophils # (Auto) 0.03 12/23/17 16:49 Test 12/23/17 16:49 White Blood Count 11.85 K/uL (4.8-10.8) Red Blood Count 4.27 M/uL (4.2-5.4) Hemoglobin 12.1 g/dL (12.0-16.0) Hematocrit 36.9 % (37-47) Mean Corpuscular Volume 86.4 fL (80-100) Mean Corpuscular Hemoglobin 28.3 pg (25-34) Mean Corpuscular Hemoglobin Concent 32.8 g/dl (32-36) Platelet Count 53 K/uL (130-400) Neutrophils (%) (Auto) 73.7 % Lymphocytes (%) (Auto) 15.0 % Monocytes (%) (Auto) 7.2 % Eosinophils (%) (Auto) 2.0 % Basophils (%) (Auto) 0.3 % Neutrophils # (Auto) 8.74 K/uL (1.4-6.5) Lymphocytes # (Auto) 1.78 K/uL (1.2-3.4) Monocytes # (Auto) 0.85 K/uL (0.11-0.59) Eosinophils # (Auto) 0.24 K/uL (0-0.5) Basophils # (Auto) 0.03 K/uL (0-0.2) RDW Standard Deviation 52.9 fL (36.4-46.3) RDW Coefficient of Variation 16.8 % (11.5-14.5) Immature Granulocyte % (Auto) 1.8 % Immature Granulocyte # (Auto) 0.21 K/uL (0.00-0.02) Platelet Estimate DECREASED Red Blood Cell Morphology Unremarkable Anion Gap 8.0 mmol/L (3-11) Est Creatinine Clear Calc Drug Dose 121.8 ml/min Estimated GFR () 124.0 Estimated GFR (Non- 107.0 BUN/Creatinine Ratio 12.9 (10-20) Calcium Level 8.6 mg/dl (8.5-10.1) Total Bilirubin 0.1 mg/dl (0.2-1) Direct Bilirubin < 0.1 mg/dl (0-0.2) Aspartate Amino Transf (AST/SGOT) 17 U/L (15-37) Alanine Aminotransferase (ALT/SGPT) 22 U/L (12-78) Alkaline Phosphatase 74 U/L (45-117) Total Protein 7.5 gm/dl (6.4-8.2) Albumin 3.2 gm/dl (3.4-5.0) Human Chorionic Gonadotropin, Quant 99709 mIU/mL Laboratory results per my review. Medications Administered Medications (Trade) Dose Ordered Sig/Adriano Route Start Time Stop Time Status Last Admin Dose Admin Sodium Chloride 1,000 ml @ 200 mls/hr Q5H STAT IV 12/23/17 16:27 12/23/17 20:32 DC 12/23/17 17:03 200 MLS/HR ED Course 1631: Past medical records reviewed. The patient was evaluated in room C9. A complete history and physical examination was performed. 162: Sodium Chloride 1000 mls @ 200 mls/hr IV 183: I spoke with FANNY Walker, about the patient's case. She will come evaluate the patient and perform a pelvic exam. 1930: I reviewed the patient's case with FANNY Whitt. He stated if she bounces back and is bleeding more, we would consider a platelet transfusion. This is likely ITP and the platelets are not likely to help. 1936: I informed the patient of the results of the conversation with FANNY Whitt Medical Decision Differential diagnosis: Etiologies such as ectopic , dysfunction uterine bleeding, bleeding dyscrasia, trauma, infection, thrombocytopenia, as well as others were entertained. This pt was evaluated and appeared to be in no significant distress. IV access was obtained and laboratory work was drawn. The patient was placed on monitoring engineer and found to be in a normal sinus rhythm. Patient's blood pressure has remained stable. She was given 1 L of IV normal saline solution. Ultrasound of the pelvis reveals an 11 week gestation with heart tones of 173 bpm. NUTRITION CONSULTANT was contacted. The patient's platelet count seems to be stable over the last 10-[address] Skaggs evaluated the patient in the ED and feels the bleeding is coming from the cervical os. At this point of the gestation, there is not much to be done for the bleeding. The patient's H&H has not dropped significantly. Dr. Law was contacted at the patient's request. He has suggested that if the patient bounces back to the emergency department over the weekend, we could consider platelet transfusion, although the patient likely suffers from ITP and this is unlikely to make a significant change in outcome. The patient has follow-up with NUTRITION CONSULTANT in 2 days. She was discharged to the care of her mother and will return to the emergency department immediately for worsening bleeding or any medical concerns. Medication Reconcilliation Current Medication List: was personally reviewed by me Blood Pressure Screening Patient's blood pressure: Elevated blood pressure Blood pressure disposition: Elevated BP felt to be situational Consults Time Called: [phone] Consulting Physician: Dr. Rebollar, OB Returned Call: 1930 I reviewed the patient's case with Dr. Rebollar, OB. He stated if she bounces back and is bleeding more, we would consider a platelet transfusion. This is likely ITP and the platelets are not likely to help. Additional Consults: Time Called: 1831 Consulted Physician: Dr. Skaggs OB Returned Call: [phone] Additional Comments: She will come evaluate the patient and perform a pelvic exam. Impression Primary Impression: Thrombocytopenia affecting Additional Impression: Threatened in first trimester Scribe Attestation The scribe's documentation has been prepared under my direction and personally reviewed by me in its entirety. I confirm that the note above accurately reflects all work, treatment, procedures, and medical decision making performed by me. Departure Information Dispostion Home / Self-Care Referrals Tiffany Hamilton M.D. (PCP) Forms HOME CARE DOCUMENTATION FORM, IMPORTANT VISIT INFORMATION, WORK / SCHOOL INSTRUCTIONS Patient Instructions My [facility] Additional Instructions Diagnosis: Threatened first trimester, thrombocytopenia in Please follow-up with Dr. Mile Hamilton of NUTRITION [facility]SULT[facility] next week as scheduled. If bleeding worsens or you develop dizziness, shortness of breath or any concerns, return to the ED immediately. Please drink plenty of clear fluids. Problem Qualifiers
[2017-12-23 17:21] LABS: MEAN CORPUSCULAR HGB CONC 32.8 g/dl (32-36)
[2017-12-23 17:28] LABS: HEMATOCRIT 36.9 % (37-47); HEMOGLOBIN 12.1 g/dL (12.0-16.0); MEAN CELL VOLUME 86.4 fL (80-100); MEAN CORPUSCULAR HEMOGLOBIN 28.3 pg (25-34); RED CELL DISTRIBUTION WIDTH CV 16.8 % (11.5-14.5); RED CELL DISTRIBUTION WIDTH SD 52.9 fL (36.4-46.3); WHITE BLOOD COUNT 11.85 K/uL (4.8-10.8)
[2017-12-23 17:34] LABS: ALBUMIN 3.2 gm/dl (3.4-5.0); ALT/SGPT 22 U/L (12-78); BLOOD UREA NITROGEN 9 mg/dl (7-18); CALCIUM 8.6 mg/dl (8.5-10.1); CARBON DIOXIDE 24 mmol/L (21-32); CREATININE 0.72 mg/dl (0.60-1.20); GLUCOSE 115 mg/dl (70-99); POTASSIUM 3.5 mmol/L (3.5-5.1); SODIUM 137 mmol/L (136-145)
[2017-12-23 17:37] LABS: ALKALINE PHOSPHATASE 74 U/L (45-117); AST/SGOT 17 U/L (15-37); TOTAL PROTEIN 7.5 gm/dl (6.4-8.2)
[2017-12-23 18:04] LABS: BASO % 0.3 %; BASO ABS # 0.03 K/uL (0-0.2); EOS ABS # 0.24 K/uL (0-0.5); IG# 0.21 K/uL (0.00-0.02); LYMPH ABS # 1.78 K/uL (1.2-3.4); MONO % 7.2 %; MONO ABS # 0.85 K/uL (0.11-0.59); NEUT % 73.7 %; NEUT ABS # 8.74 K/uL (1.4-6.5); PLATELET COUNT 53 K/uL (130-400)
--- NOTE | 2017-12-23 18:05 | DIAGNOSTIC IMAGING REPORT ---
ADDENDUM Conclusion should read as follows: Single, viable intrauterine of 11 weeks 5 days gestational age. heartbeat is confirmed. Small left ovarian cyst. Electronically signed by: Demarcus Jaime M.D. 12/23/2017 6:41 PM Dictated Date/Time: 12/23/2017 6:40 PM ORIGINAL REPORT <14 WKS SINGLE CLINICAL HISTORY: vag bleed, 11 weeks TECHNIQUE: Ultrasound COMPARISON STUDY: 12/12/2017 FINDINGS: Single, viable intrauterine is noted. HISTORY: Of gestational age is 11 weeks 5 days. heart rate 1 73 bpm. Right ovary is not visualized. Left ovary measures 2.4 cm and contains a 1.6 cm follicular cyst. IMPRESSION: Single, viable intrauterine of fracture in left weeks 5 days gestational age. heart rate is confirmed. Small left ovarian cyst. The above report was generated using voice recognition software. It may contain grammatical, syntax or spelling errors. Electronically signed by: Demarcus Jaime M.D. 12/23/2017 6:04 PM Dictated Date/Time: 12/23/2017 6:01 PM
--- NOTE | 2017-12-23 19:51 | Medical Consult ---
Consultation Note Date of Service Dec 23, 2017. 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 Montalvo in the emergency department for heavy vaginal bleeding in early . Chief complaint: passing clots per vagina History of present illness: Patient is a 37-year-old 001 at 11 weeks 5 days who presented that to the emergency department with 3 episodes of passing blood clots per vagina today. She has a known history of thrombocytopenia, and has been seeing hematology. On December 05 her platelets were 69. Her is complicated by GDM A1, low platelets, history of section 1, and advanced maternal age. Past medical history: Asthma, depression and anxiety, gestational diabetes and prior . Past surgical history: section and appendectomy Allergies: Augmentin causes GI distress and metal taste in mouth Medications: vitamins, Dulera, albuterol Review of systems: All negative except as described above Family history: Patient is adopted family history is unknown. Last 8 Hrs Date Time Temp Pulse Resp B/P (MAP) Pulse Ox O2 Delivery O2 Flow Rate FiO2 12/23/17 19:04 95 18 127/72 97 Room Air 12/23/17 16:14 37.5 95 16 150/91 97 Room Air General impression: Awake alert and oriented 3 no acute distress Abdomen: Soft nontender to palpation Pelvic exam: Sterile speculum exam was performed, the cervix was visually closed with no obvious abnormalities. Small dark red blood clots were cleared from the vagina with a lung tip cotton swab, a small amount of dark blood exited the cervix in a trickle. Extremities: No edema no calf tenderness Radiology: Ultrasound performed today showed viable with heartbeat 173. Last 24 Hours Test 12/23/17 16:49 White Blood Count 11.85 K/uL Red Blood Count 4.27 M/uL Hemoglobin 12.1 g/dL Hematocrit 36.9 % Mean Corpuscular Volume 86.4 fL Mean Corpuscular Hemoglobin 28.3 pg Mean Corpuscular Hemoglobin Concent 32.8 g/dl Platelet Count 53 K/uL Neutrophils (%) (Auto) 73.7 % Lymphocytes (%) (Auto) 15.0 % Monocytes (%) (Auto) 7.2 % Eosinophils (%) (Auto) 2.0 % Basophils (%) (Auto) 0.3 % Neutrophils # (Auto) 8.74 K/uL Lymphocytes # (Auto) 1.78 K/uL Monocytes # (Auto) 0.85 K/uL Eosinophils # (Auto) 0.24 K/uL Basophils # (Auto) 0.03 K/uL RDW Standard Deviation 52.9 fL RDW Coefficient of Variation 16.8 % Immature Granulocyte % (Auto) 1.8 % Immature Granulocyte # (Auto) 0.21 K/uL Platelet Estimate DECREASED Red Blood Cell Morphology Unremarkable Sodium Level 137 mmol/L Potassium Level 3.5 mmol/L Chloride Level 105 mmol/L Carbon Dioxide Level 24 mmol/L Anion Gap 8.0 mmol/L Blood Urea Nitrogen 9 mg/dl Creatinine 0.72 mg/dl Est Creatinine Clear Calc Drug Dose 121.8 ml/min Estimated GFR () 124.0 Estimated GFR (Non- 107.0 BUN/Creatinine Ratio 12.9 Random Glucose 115 mg/dl Calcium Level 8.6 mg/dl Total Bilirubin 0.1 mg/dl Direct Bilirubin < 0.1 mg/dl Aspartate Amino Transf (AST/SGOT) 17 U/L Alanine Aminotransferase (ALT/SGPT) 22 U/L Alkaline Phosphatase 74 U/L Total Protein 7.5 gm/dl Albumin 3.2 gm/dl Human Chorionic Gonadotropin, Quant 33540 mIU/mL labs (performed December 05): Blood type O+, hemoglobin 12, hematocrit 36.9 , platelets 69, rubella immune, VDRL nonreactive, hepatitis B antigen negative, HIV negative, gonorrhea chlamydia negative. Assessment/plan: 37-year-old at 11 weeks 5 days with vaginal bleeding and known history of thrombocytopenia. Given patient's pelvic examination and ultrasound showing a closed cervix with heart rate 173, the bleeding indicates a threatened miscarriage however the is still viable at this time. Patient's hemoglobin has not dropped since her initial labs on December 05, and she is hemodynamically stable at this time. Her platelets are low, and recommend that she continue to follow with hematology for their further recommendations. I discussed with her that if her bleeding worsens, or if she feels dizzy or faint over the weekend that she is to return to the emergency department immediately. Otherwise she is to follow-up with Dr. Hamilton in the office on Tuesday for her regularly scheduled visit.
[2017-12-23 20:14] VITALS: BP 120/76; PULSE 98; O2SAT 96
== END 2017-12-23 20:16 | disposition home or self-care (01) ==
LOC: C.EDB 16:13 → C.EDC 20:16
DX: O99.111 Other diseases of the blood and blood-forming organs and certain disorders involving the immune mechanism complicating pregnancy, first trimester (principal); D69.3 Immune thrombocytopenic purpura; O20.0 Threatened abortion; Z3A.11 11 weeks gestation of pregnancy; O99.511 Diseases of the respiratory system complicating pregnancy, first trimester; J45.909 Unspecified asthma, uncomplicated; O99.215 Obesity complicating the puerperium; E66.3 Overweight; Z88.0 Allergy status to penicillin; Z88.1 Allergy status to other antibiotic agents

== ENCOUNTER → 2017-12-23 | Outpatient (CLI) | payer OTHER ==
[~2017-12-23] MED LIST changes: +PRENTAB26 PO; -PRVHFAIN INH; +VNTHFA/IN INH
[2017-12-23 13:15] LABS: MEAN CORPUSCULAR HGB CONC 32.6 g/dl (32-36)
[2017-12-23 13:24] LABS: HEMATOCRIT 37.7 % (37-47); HEMOGLOBIN 12.3 g/dL (12.0-16.0); MEAN CELL VOLUME 86.1 fL (80-100); MEAN CORPUSCULAR HEMOGLOBIN 28.1 pg (25-34); RED CELL DISTRIBUTION WIDTH CV 16.6 % (11.5-14.5); RED CELL DISTRIBUTION WIDTH SD 52.6 fL (36.4-46.3); WHITE BLOOD COUNT 11.87 K/uL (4.8-10.8)
[2017-12-23 13:36] LABS: BASO % 0.3 %; BASO ABS # 0.03 K/uL (0-0.2); EOS % 1.9 %; EOS ABS # 0.23 K/uL (0-0.5); IG# 0.23 K/uL (0.00-0.02); LYMPH % 16.1 %; LYMPH ABS # 1.91 K/uL (1.2-3.4); MONO ABS # 0.59 K/uL (0.11-0.59); NEUT % 74.8 %; NEUT ABS # 8.88 K/uL (1.4-6.5); PLATELET COUNT 53 K/uL (130-400)
== END | disposition home or self-care (01) ==
LOC: C.LAB1850 12:31
PROVIDERS: ATTEND Internal Medicine Hematology & Oncology
DX: D69.6 Thrombocytopenia, unspecified (principal)

== ENCOUNTER 2018-05-04 11:47 | Outpatient (CLI) | payer OTHER ==
[~2018-05-04] VITALS: Ht 152.4 cm; Wt 119.0 kg
[2018-05-04] MEDS ORDERED: LACTATED RINGER'S 1000ML 1,000 ML IV SCH (12:14)
[2018-05-04] MEDS ORDERED: LACTATED RINGER'S 1000ML 500 ML IV ONE (12:14)
[2018-05-04] MEDS ORDERED: ONDANSETRON 4 MG TAB PO PRN (12:15)
[2018-05-04] MEDS ORDERED: FLUCONAZOLE 50 MG TAB PO ONE (12:15)
[2018-05-04] MEDS ORDERED: ACETAMINOPHEN 325 MG TAB PO PRN (12:15)
[2018-05-04] MEDS ORDERED: INSU70IN2 SC (13:07)
[2018-05-04 13:26] VITALS: Ht 152.4 cm; Wt 119.0 kg
--- NOTE | 2018-05-04 14:46 | Discharge Instructions ---
Discharge Instructions Date of Service May 04, 2018. Admission Reason for Admission: R/O Labor Discharge Discharge Diagnosis / Problem: Vaginal jayjay Discharge Goals Goal(s): Continuing OB care Activity Recommendations Activity Limitations: as noted below ACTIVITY RECOMMENDATIONS: See Labor Sheet. SPECIAL CARE INSTRUCTIONS: Call Doctor if: * Regular contractions every 5 minutes or greater than 5 contractions in one hour. * Bleeding * Water breaks or is leaking * Decreased movement * Fever >100.4 degrees F * Pain not relieved by routine measures or pain medication ordered. FOLLOW UP VISIT: Return to Labor and Delivery on for /call for appointment time . Follow-up Visit with: When: . Current Hospital Diet Patient's current hospital diet: Discharge Diet Recommended Diet: Diabetes Type 2 Diet Pending Studies Studies pending at discharge: yes List of pending studies: urine culture Medical Emergencies . Who to Call and When: Medical Emergencies: If at any time you feel your situation is an emergency, please call 911 immediately. . Non-Emergent Contact Non-Emergency issues call your: Specialist Call Non-Emergent contact if: your pain is not controlled, your pain is worsening . . "Provider Documentation" section prepared by Kurtis Christensen. .
== END 2018-05-04 14:55 | disposition home or self-care (01) ==
LOC: C.LD 11:47 → C.OPB 11:47
PROVIDERS: ATTEND Obstetrics & Gynecology
DX: O23.593 Infection of other part of genital tract in pregnancy, third trimester (principal); B37.3 Candidiasis of vulva and vagina; R10.9 Unspecified abdominal pain; Z3A.00 Weeks of gestation of pregnancy not specified

== ENCOUNTER 2021-07-14 17:30 | Inpatient (IN) ==
[2021-07-14 18:51] LABS: Mean Corpuscular Hgb Conc 31.7 g/dL (32-36)
[2021-07-14 18:56] LABS: Hematocrit (blood only) 39.1 % (37-47); Hemoglobin 12.4 g/dL (12.0-16.0); Mean Corpuscular Hemoglobin 24.5 pg (25-34); Mean Corpuscular Volume 77.3 fL (80-100); RDW Coefficient of Variation 16.9 % (11.5-14.5); RDW Standard Deviation 47.4 fL (36.4-46.3); Red Blood Count 5.06 M/uL (4.2-5.4); White Blood Count 13.77 K/uL (4.8-10.8)
--- NOTE | 2021-07-14 19:08 | XRay Report ---
XR chest 1V portable HISTORY: 41 years-old Female SOB acute shortness of breath with cough COMPARISON: Chest radiograph and CTA chest 07/01/2019 TECHNIQUE: Portable AP view of the chest FINDINGS: Cardiomediastinal and hilar silhouettes are within normal limits. No pneumothorax, pleural effusion, airspace consolidation or overt edema. Unchanged benign-appearing sclerotic focus of the left proxima l humerus. No acute fracture. IMPRESSION: No acute process. ACT 112: Negative or not required by law. The above report was generated using voice recognition software. It may contain grammatical, syntax o r spelling errors. Electronically signed by: Chau Cohen M.D. 07/14/2021 7:06 PM
[2021-07-14 19:26] LABS: Mean Platelet Volume 11.9 fL (7.4-10.4); Platelet Count 139 K/uL (130-400)
[2021-07-14 19:27] LABS: ALC (manual) 2.69 K/uL (1.2-3.4); ANC (manual) 10.36 K/uL (1.4-6.5); Eosinophils # (manual) 0.12 K/uL (0-0.5); Eosinophils % (manual) 0.9 %; Lymphocytes # (manual) 2.69 K/uL (1.2-3.4); Lymphocytes % (manual) 19.5 %; Monocytes # (manual) 0.61 K/uL (0.11-0.59); Monocytes % (manual) 4.4 %; Neutrophils # (manual) 10.36 K/uL (1.4-6.5); Neutrophils % (manual) 75.2 %; Platelet Estimate Decreased (Normal)
[2021-07-14 19:36] LABS: Alanine Aminotransferase 82 U/L (12-78); Albumin Globulin Ratio 0.8 (0.9-2); Albumin Level 3.4 gm/dl (3.4-5.0); Alkaline Phosphatase 108 U/L (45-117); Aspartate Aminotransferase 42 U/L (15-37); Bilirubin,Total 0.3 mg/dl (0.2-1); Blood Urea Nitrogen 11 mg/dl (7-18); Calcium 8.6 mg/dl (8.5-10.1); Carbon Dioxide 24 mmol/L (21-32); Chloride 99 mmol/L (98-107); Creatinine Clr Calc Pharmacy 95.2 ml/min; Est GFR (African American) 93.3 ml/min; Est GFR (Non-African American) 80.5 ml/min; Globulin 4.1 gm/dl (2.5-4.0); Glucose 483 mg/dl (70-99); Magnesium 2.2 mg/dl (1.8-2.4); Potassium 3.5 mmol/L (3.5-5.1); Sodium 134 mmol/L (136-145); Total Protein 7.5 gm/dl (6.4-8.2); Troponin I < 0.015 ng/ml (0-0.045)
[2021-07-14 19:45] LABS: Beta-Hydroxybutyrate 1.48 mg/dl (0.2-2.81)
[2021-07-14] MEDS ORDERED: dexAMETHasone**PF** 10 MG/ML VIAL IV ONE (20:15)
[2021-07-14] MEDS ORDERED: ALBUT/IPRATROP 3MG/0.5MG NEB 3 ML VIAL NEB STA (20:15)
[2021-07-14] MEDS ORDERED: SODIUM CHLORIDE 0.9% 1000ML 1,000 ML IV ONE (20:15)
--- NOTE | 2021-07-14 20:28 | Emergency Department Note ---
Impression & Plan Acute bronchitis, Exertional shortness of breath, Acute hyperglycemia ED Provider Note NAME: PUSHPA SCHMIDT AGE: 41 SEX: F : 1980 ARRIVES VIA: Walk-In INFORMANT: Patient, ED PROVIDER(S): Perez Ding DO CHIEF COMPLAINT: Difficulty breathing HPI: The patient is a 41-year-old female who presented to the emergency depart ment for an evaluation of difficulty breathing. She has had ongoing symptoms for approximately 3 weeks. The patient states that her daughter also had upper respiratory symptoms similar to this. She is concerned that this is the same infection that her daughter has. She was seen at the [facility]. She was referred to the emergency department for further evaluation and further testing. The patient denies having any hemoptysis. She does complain of body aches and chest pain. She states that she feels as though her chest is squeezing and tight. She has been trying her medications for asthma with only minimal relief. She was on steroids recently but not currently. She denies having any headache. She has had no exposure to COVID-19 as far she knows. The patient states her symptoms are moderate and worse with any exertion. ROS: See above HPI for pertinent positives & negatives. A total of 10 systems reviewed and were otherwise negative. PAST MEDICAL HISTORY: See Below PAST SURGICAL HISTORY: See Below FAMILY HISTORY: See Below SOCIAL HISTORY: See Below HOME MEDICATIONS: See Below ALLERGIES: See Below VITALS: See Below PHYSICAL EXAMINATION: GENERAL: Patient is awake alert in no acute distress patient is resting comfortably and showing no signs of anxiety EYES: The conjunctivae are clear. The pupils are round and reactive. EARS, NOSE, MOUTH AND THROAT: The nose is without any evidence of any deformity. NECK: The neck is nontender and supple. RESPIRATORY: Splinting respirations were noted. Diminished breath sounds are noted throughout. There is no tachypnea or conversational dyspnea. CARDIOVASCULAR: Regular rate and rhythm noted there no murmurs rubs or gallops normal S1 normal S2. GASTROINTESTINAL: The abdomen is soft. Abdomen is nontender. MUSCULOSKELETAL/EXTREMITIES: There is no evidence of gross deformity full range of motion is noted in the hips and shoulders. SKIN: There is no obvious evidence of any rash. There are no petechiae, pallor or cyanosis noted. NEUROLOGIC: Patient is awake alert and oriented x3 strength is symmetric patellar reflexes are 2+ bilaterally MEDICAL DECISION MAKING: The patient is a 41-year-old female who presented to emergency department b ecause of a cough. The patient's had ongoing symptoms for the last week but they became acutely worse this evening. The patient was not hypoxic but she was tachycardic. She was also found to have significant hyperglycemia in the emergency department. She was given steroids as well as bronchodilators in the emergency department. She was also treated with IV fluids to try to manage her blood sugar. I discussed the patient's condition with her. I also discussed her case with the on-call [facility]. They have agreed to evaluate the patient in the emergency department for further management and disposition. She was feeling somewhat improved after reevaluation. Triage Nursing notes reviewed. Prior medical records reviewed Vital Signs: reviewed and remarkable for tachycardia. Differential diagnosis: Reactive airway disease, pneumonia, pneumothorax, COPD, CHF, infections, c ardiac ischemia, pulmonary embolism, musculoskeletal, gastrointestinal, as well as other pathologies. ER treatment provided: See below Diagnostics interpreted by me: ECG: EKG was obtained in the emergency department. My interpretation is sinus tachycardia 108 bpm. There is no ectopy. There is no acute ST segment abnormalities noted. This was compared to a tracing from July [id number]. No significant changes were noted. Cardiac Monitoring: An order was placed for continuous cardiac monitoring. The monitor shows a rate of 114 bpm with sinus tachycardia rhythm. Laboratory studies: As stated above and show below. Imaging studies: See below Consultation(s): I discussed this case with Dr. Holguin who is on-call for the [facility]. He will evaluate the patient in the emergency department for further management and disposition. Past Med/Surg History Medical History (Updated 07/14/21 @ 22:24 by Perez Ding DO) Asthma Chronic ITP (idiopathic thrombocytopenia) Fibromyalgia Hypothyroidism Lupus Surgical History History of appendectomy History of delivery Family History Other No pertinent family history Social History Smoking Status: Never smoker Preferred Language: Armenian Feels Safe at Home: Yes Allergies Allergies Allergy/AdvReac Type Severity Reaction Status Date / Time meloxicam Allergy Intermediate rash ~ Verified 07/14/21 20:34 lower back pain amoxicillin Allergy Mild METALLIC Verified 07/14/21 20:34 TASTE, NAUSEATED clavulanic acid Allergy Mild METALLIC Verified 07/14/21 20:34 TASTE, NAUSEATED Penicillins Allergy Unknown Unknown Verified 07/14/21 20:34 Home Meds Home Medications Medication Instructions Recorded Confirmed albuterol sulfate 90 mcg/actuation 2 puff INHALATION Q4H PRN 04/26/19 07/14/21 aerosol inhaler levothyroxine 50 mcg tablet 25 mcg PO QAM 04/26/19 07/14/21 mometasone-formoterol HFA 200 2 puff INHALATION BID 04/26/19 07/14/21 mcg-5 mcg/actuation aerosol inhaler (Dulera) ergocalciferol (vitamin D2) 1,250 50,000 unit PO 2XWK 05/31/19 07/14/21 mcg (50,000 unit) capsule (Vitamin D2) ferrous sulfate 325 mg (65 mg 325 mg PO QAM 05/31/19 07/14/21 iron) tablet (iron) hydroxychloroquine 200 mg tablet 400 mg PO HS 05/31/19 07/14/21 (Plaquenil) azathioprine 50 mg tablet (Imuran) 100 mg PO HS 09/10/20 07/14/21 duloxetine 60 mg capsule,delayed 60 mg PO HS 09/10/20 07/14/21 release (Cymbalta) melatonin 3 mg tablet 3 mg PO HS PRN 09/10/20 07/14/21 norethindrone (contraceptive) 0.35 0.35 mg PO HS 09/10/20 07/14/21 mg tablet (Sharobel) cyclobenzaprine 10 mg tablet 10 mg PO BID PRN 07/14/21 07/14/21 meclizine 25 mg tablet (Dramamine 25 mg PO TID PRN 07/14/21 07/14/21 Less Drowsy) oxycodone 5 mg tablet (Roxicodone) 5 mg PO QAM 07/14/21 07/14/21 Previous Rx's Medication Instructions Recorded docusate sodium 100 mg capsule 100 mg PO BID #60 cap 08/14/20 (Colace) ondansetron 4 mg disintegrating 4 mg PO Q6H PRN #15 tab 09/10/20 tablet Results & Data (ED) Vital Signs Vital Signs - 24 hr 07/14/21 17:58 07/14/21 18:34 07/14/21 20:14 Temperature 36.5 C Temperature Source Skin Pulse Rate 110 H 110 H Pulse Rate [Apical] Pulse Rate from SpO2 Sensor Respiratory Rate 18 20 21 Respiratory Effort / Characteristics Non-Labored Respiratory Depth Normal Blood Pressure 146/89 H Blood Pressure Mean 108 Pulse Oximetry 97 96 Oxygen Delivery Method Room Air Room Air Room Air Sepsis Recent Fever Within 48 Hours No Sepsis New/Unexplained Change in Mental Status No Sepsis Action Taken by Nursing No Action Required 07/14/21 20:20 07/14/21 20:30 07/14/21 20:40 Temperature Temperature Source Pulse Rate 114 H 112 H 114 H Pulse Rate [Apical] 108 H Pulse Rate from SpO2 Sensor 112 H 113 H Respiratory Rate 17 28 H 12 Respiratory Effort / Characteristics Spontaneous Respiratory Depth Blood Pressure 147/82 H Blood Pressure Mean 103 Pulse Oximetry 97 96 Oxygen Delivery Method Room Air Room Air Room Air Sepsis Recent Fever Within 48 Hours Sepsis New/Unexplained Change in Mental Status Sepsis Action Taken by Nursing 07/14/21 20:50 07/14/21 21:00 07/14/21 21:10 Temperature Temperature Source Pulse Rate 112 H 117 H 113 H Pulse Rate [Apical] Pulse Rate from SpO2 Sensor 113 H 117 H 115 H Respiratory Rate 24 24 30 H Respiratory Effort / Characteristics Respiratory Depth Blood Pressure 132/82 Blood Pressure Mean 98 Pulse Oximetry 97 95 96 Oxygen Delivery Method Room Air Room Air Room Air Sepsis Recent Fever Within 48 Hours Sepsis New/Unexplained Change in Mental Status Sepsis Action Taken by Nursing 07/14/21 21:20 07/14/21 21:30 07/14/21 21:40 Temperature Temperature Source Pulse Rate 120 H 117 H 114 H Pulse Rate [Apical] Pulse Rate from SpO2 Sensor 117 H 117 H 116 H Respiratory Rate 16 26 H 23 Respiratory Effort / Characteristics Respiratory Depth Blood Pressure Blood Pressure Mean Pulse Oximetry 96 94 97 Oxygen Delivery Method Room Air Room Air Room Air Sepsis Recent Fever Within 48 Hours Sepsis New/Unexplained Change in Mental Status Sepsis Action Taken by Assisted Medications Current Medication List: was personally reviewed by me Laboratory Data Attestation: I reviewed the patient's lab results. Result diagrams: 07/14/21 18:25 07/14/21 18:25 Lab Results 07/14/21 07/14/21 07/14/21 Range/Units 18:25 18:25 20:21 WBC 13.77 H (4.8-10.8) K/uL RBC 5.06 (4.2-5.4) M/uL Hgb 12.4 (12.0-16.0) g/dL Hct 39.1 (37-47) % MCV 77.3 L (80-100) fL MCH 24.5 L (25-34) pg MCHC 31.7 L (32-36) g/dL RDW Std Deviation 47.4 H (36.4-46.3) fL RDW Coeff of Kelsi 16.9 H (11.5-14.5) % Plt Count 139 (130-400) K/uL MPV 11.9 H (7.4-10.4) fL Neutrophils % (Manual) 75.2 % Lymphocytes % (Manual) 19.5 % Monocytes % (Manual) 4.4 % Eosinophils % (Manual) 0.9 % Neutrophils # (Manual) 10.36 H (1.4-6.5) K/uL Total Absolute Neuts 10.36 H (1.4-6.5) K/uL Lymphocytes # (Manual) 2.69 (1.2-3.4) K/uL Total Abs Lymphocytes 2.69 (1.2-3.4) K/uL Monocytes # (Manual) 0.61 H (0.11-0.59) K/uL Eosinophils # (Manual) 0.12 (0-0.5) K/uL Platelet Estimate Decreased L (Normal) D-Dimer (0-500) ug/L FEU VBG pH (7.36-7.41) VBG pCO2 (38-50) mmHg VBG pO2 mmHg VBG HCO3 mmol/L VBG O2 Saturation % VBG Base Excess mEq/L Barometric Pressure mm/Hg Sodium 134 L (136-145) mmol/L Potassium 3.5 (3.5-5.1) mmol/L Chloride 99 (98-107) mmol/L Carbon Dioxide 24 (21-32) mmol/L Anion Gap 11.0 (3-11) BUN 11 (7-18) mg/dl Creatinine 0.89 (0.6-1.2) mg/dl Est Cr Clr Drug Dosing 95.2 ml/min Est GFR ( Amer) 93.3 ml/min Est GFR (Non-Af Amer) 80.5 ml/min BUN/Creatinine Ratio 12.0 (10-20) Glucose 483 H* (70-99) mg/dl Calcium 8.6 (8.5-10.1) mg/dl Magnesium 2.2 (1.8-2.4) mg/dl Total Bilirubin 0.3 (0.2-1) mg/dl AST 42 H (15-37) U/L ALT 82 H (12-78) U/L Alkaline Phosphatase 108 (45-117) U/L Troponin I < 0.015 (0-0.045) ng/ml Total Protein 7.5 (6.4-8.2) gm/dl Albumin 3.4 (3.4-5.0) gm/dl Globulin 4.1 H (2.5-4.0) gm/dl Albumin/Globulin Ratio 0.8 L (0.9-2) Beta-Hydroxybutyric Acd 1.48 (0.2-2.81) mg/dl COVID-19 Eval Order Covid19 at [facility] SARS-CoV-2 (PCR) (Negative) 07/14/21 07/14/21 07/14/21 Range/Units 20:21 20:33 20:33 WBC (4.8-10.8) K/uL RBC (4.2-5.4) M/uL Hgb (12.0-16.0) g/dL Hct (37-47) % MCV (80-100) fL MCH (25-34) pg MCHC (32-36) g/dL RDW Std Deviation (36.4-46.3) fL RDW Coeff of Kelsi (11.5-14.5) % Plt Count (130-400) K/uL MPV (7.4-10.4) fL Neutrophils % (Manual) % Lymphocytes % (Manual) % Monocytes % (Manual) % Eosinophils % (Manual) % Neutrophils # (Manual) (1.4-6.5) K/uL Total Absolute Neuts (1.4-6.5) K/uL Lymphocytes # (Manual) (1.2-3.4) K/uL Total Abs Lymphocytes (1.2-3.4) K/uL Monocytes # (Manual) (0.11-0.59) K/uL Eosinophils # (Manual) (0-0.5) K/uL Platelet Estimate (Normal) D-Dimer 200 (0-500) ug/L FEU VBG pH (7.36-7.41) VBG pCO2 (38-50) mmHg VBG pO2 mmHg VBG HCO3 mmol/L VBG O2 Saturation % VBG Base Excess mEq/L Barometric Pressure mm/Hg Sodium (136-145) mmol/L Potassium (3.5-5.1) mmol/L Chloride (98-107) mmol/L Carbon Dioxide (21-32) mmol/L Anion Gap (3-11) BUN (7-18) mg/dl Creatinine (0.6-1.2) mg/dl Est Cr Clr Drug Dosing ml/min Est GFR ( Amer) ml/min Est GFR (Non-Af Amer) ml/min BUN/Creatinine Ratio (10-20) Glucose (70-99) mg/dl Calcium (8.5-10.1) mg/dl Magnesium (1.8-2.4) mg/dl Total Bilirubin (0.2-1) mg/dl AST (15-37) U/L ALT (12-78) U/L Alkaline Phosphatase (45-117) U/L Troponin I (0-0.045) ng/ml Total Protein (6.4-8.2) gm/dl Albumin (3.4-5.0) gm/dl Globulin (2.5-4.0) gm/dl Albumin/Globulin Ratio (0.9-2) Beta-Hydroxybutyric Acd 2.31 (0.2-2.81) mg/dl COVID-19 Eval Order SARS-CoV-2 (PCR) NEGATIVE (Negative) 07/14/21 Range/Units 20:50 WBC (4.8-10.8) K/uL RBC (4.2-5.4) M/uL Hgb (12.0-16.0) g/dL Hct (37-47) % MCV (80-100) fL MCH (25-34) pg MCHC (32-36) g/dL RDW Std Deviation (36.4-46.3) fL RDW Coeff of Kelsi (11.5-14.5) % Plt Count (130-400) K/uL MPV (7.4-10.4) fL Neutrophils % (Manual) % Lymphocytes % (Manual) % Monocytes % (Manual) % Eosinophils % (Manual) % Neutrophils # (Manual) (1.4-6.5) K/uL Total Absolute Neuts (1.4-6.5) K/uL Lymphocytes # (Manual) (1.2-3.4) K/uL Total Abs Lymphocytes (1.2-3.4) K/uL Monocytes # (Manual) (0.11-0.59) K/uL Eosinophils # (Manual) (0-0.5) K/uL Platelet Estimate (Normal) D-Dimer (0-500) ug/L FEU VBG pH 7.39 (7.36-7.41) VBG pCO2 41 (38-50) mmHg VBG pO2 32 mmHg VBG HCO3 24 mmol/L VBG O2 Saturation < 60.0 % VBG Base Excess -0.8 mEq/L Barometric Pressure 733.5 mm/Hg Sodium (136-145) mmol/L Potassium (3.5-5.1) mmol/L Chloride (98-107) mmol/L Carbon Dioxide (21-32) mmol/L Anion Gap (3-11) BUN (7-18) mg/dl Creatinine (0.6-1.2) mg/dl Est Cr Clr Drug Dosing ml/min Est GFR ( Amer) ml/min Est GFR (Non-Af Amer) ml/min BUN/Creatinine Ratio (10-20) Glucose (70-99) mg/dl Calcium (8.5-10.1) mg/dl Magnesium (1.8-2.4) mg/dl Total Bilirubin (0.2-1) mg/dl AST (15-37) U/L ALT (12-78) U/L Alkaline Phosphatase (45-117) U/L Troponin I (0-0.045) ng/ml Total Protein (6.4-8.2) gm/dl Albumin (3.4-5.0) gm/dl Globulin (2.5-4.0) gm/dl Albumin/Globulin Ratio (0.9-2) Beta-Hydroxybutyric Acd (0.2-2.81) mg/dl COVID-19 Eval Order SARS-CoV-2 (PCR) (Negative) Administered Medications Discontinued Medications Albuterol (Albut/Ipratrop 3mg/0.5mg Neb 3 Ml Vial) 3 ml NEB NOW STA Stop: 07/14/21 20:16 Last Admin: 07/14/21 20:29 Dose: 3 ml Documented by: [id number] Dexamethasone Sodium Phosphate (DexamethasonePf 10 Mg/Ml Vial) 10 mg IV NOW ONE Stop: 07/14/21 20:16 Last Admin: 07/14/21 21:45 Dose: 10 mg Documented by: [id number] Sodium Chloride (Nss 1000ml) 1,000 mls @ 999 mls/hr IV .Q1H1M ONE Stop: 07/14/21 21:15 Last Infusion: 07/14/21 21:45 Dose: 0 mls/hr Documented by: [id number] Admin: 07/14/21 20:22 Dose: 999 mls/hr Documented by: [id number] Imaging Data Radiologist's Impression: Chest X-Ray 07/14/21 18:00 XR chest 1V portable HISTORY: 41 years-old Female SOB acute shortness of breath with cough COMPARISON: Chest radiograph and CTA chest 07/01/2019 TECHNIQUE: Portable AP view of the chest FINDINGS: Cardiomediastinal and hilar silhouettes are within normal limits. No pneumothorax, pleural effusion, airspace consolidation or overt edema. Unchanged benign-appearing sclerotic focus of the left proximal humerus. No acute fracture. IMPRESSION: No acute process. ACT 112: Negative or not required by law. The above report was generated using voice recognition software. It may contain grammatical, syntax or spelling errors. Electronically signed by: Chau Cohen M.D. 07/14/2021 7:06 PM Discharge Plan Visit Data Chief Complaint: Shortness of Breath/Dyspnea Stated Complaint: SOB ED Provider: Perez Ding Discharge Problem: Acute bronchitis, Exertional shortness of breath, Acute hyperglycemia Patient Disposition: Being Evaluated by Hospitalist Forms Stand Alone Forms: [facility] [place] Prescriptions Prescriptions: No Action levothyroxine 50 mcg tablet 25 mcg PO QAM RF: 0 albuterol sulfate 90 mcg/actuation HFA aerosol inhaler 2 puff inhalation Q4H PRN (Reason: Shortness Of Breath Or Wheezing) RF: 0 Dulera 200-5 mcg/actuation HFA aerosol inhaler 2 puff inhalation BID RF: 0 ferrous sulfate [iron] 325 mg (65 mg iron) Tablet 325 mg PO QAM RF: 0 ergocalciferol (vitamin D2) [Vitamin D2] 50,000 unit Capsule 50,000 unit PO 2XWK RF: 0 hydroxychloroquine [Plaquenil] 200 mg Tablet 400 mg PO HS RF: 0 docusate sodium [Colace] 100 mg capsule 100 mg PO BID Qty: 60 RF: 0 azathioprine [Imuran] 50 mg tablet 100 mg PO HS RF: 0 melatonin 3 mg tablet 3 mg PO HS PRN (Reason: Sleep) RF: 0 norethindrone (contraceptive) [Sharobel] 0.35 mg tablet 0.35 mg PO HS RF: 0 duloxetine [Cymbalta] 60 mg capsule,delayed release(DR/EC) 60 mg PO HS RF: 0 ondansetron 4 mg tablet,disintegrating 4 mg PO Q6H PRN (Reason: nausea and vomiting) Qty: 15 RF: 0 cyclobenzaprine 10 mg tablet 10 mg PO BID PRN (Reason: Muscle Spasm) RF: 0 meclizine [Dramamine Less Drowsy] 25 mg tablet 25 mg PO TID PRN (Reason: Dizziness) RF: 0 oxycodone [Roxicodone] 5 mg tablet 5 mg PO QAM RF: 0 Referrals Referrals: Tiffany Hamilton MD [Primary Care Provider] -
[2021-07-14 21:00] LABS: Base Excess VBG -0.8 mEq/L; HCO3 VBG 24 mmol/L; PCO2 VBG 41 mmHg (38-50); PO2 VBG 32 mmHg; pH VBG 7.39 (7.36-7.41)
[2021-07-14 21:01] LABS: Oxygen Saturation VBG < 60.0 %
[2021-07-14 21:11] LABS: D Dimer 200 ug/L FEU (0-500)
[2021-07-14] MEDS ORDERED: NovoLIN-R INSULIN PER UNIT CHARGE IV STA (22:57)
--- NOTE | 2021-07-15 01:16 | History and Physical Report ---
DATE OF ADMISSION: 07/14/2021. CHIEF COMPLAINT: Shortness of breath. HISTORY OF PRESENT ILLNESS: This is a 41-year-old female with past medical history significant for asthma, SLE, history of ITP, in remission, history of epistaxis, depression, hypothyroidism, diabetes, who presents with shortness of breath and also found to have hyperglycemia. The patient says she was on prednisone for a couple of years, recently stopped, but recently the patient was put back on tapered dose of prednisone for asthma. The last 2 weeks, she is having shortness of breath and cough, sometimes brings phlegm. At one point, she had fever. Her sob and cough was not getting better, so she came to the ER. She is having constant cough and she has some chest discomfort, like someone is sitting on the chest. No headache. Has some blurred visions. No earache. Has some runny nose for a couple of weeks. No sore throat, no difficulty swallowing. Appetite is okay. Ambulates okay. No abdominal pain. Normal bowel and bladder movements. Currently, saturating okay on room air, was slightly tachycardic. ALLERGIES: MELOXICAM, AUGMENTIN. PAST MEDICAL HISTORY: As mentioned above. PAST SURGICAL HISTORY: Laparoscopic cholecystectomy, x2, removal of ruptured appendix. MEDICATIONS: The patient is on albuterol 2 puffs inhalation q. 4 hours p.r.n., Imuran 100 mg p.o. at bedtime, cyclobenzaprine 10 mg p.o. b.i.d. p.r.n., Colace 100 mg p.o. b.i.d., Cymbalta 60 mg p.o. at bedtime, vitamin D2 50,000 units p.o. 2 times a week, ferrous sulfate 325 mg p.o. a.m., Plaquenil 400 mg p.o. at bedtime, levothyroxine 25 mcg p.o. a.m., meclizine 25 mg p.o. t.i.d. p.r.n., melatonin 3 mg p.o. at bedtime p.r.n.,Dulera 2 puffs inhalation b.i.d., contraceptives, norethindrone 0.35 mg p.o. at bedtime, Zofran 4 mg p.o. q. 6 hours p.r.n., oxycodone 5 mg p.o. a.m. FAMILY HISTORY: Significant for the patient is adopted. SOCIAL HISTORY: Never smoked. Alcohol occasional. No drug use. REVIEW OF SYSTEMS: As per HPI. Rest of the review of systems is negative. PHYSICAL EXAMINATION: GENERAL: The patient is morbidly obese, not in acute distress. VITAL SIGNS: Temperature 36.5, pulse 120, respiratory rate 23, blood pressure 132/82, oxygen 95% on room air. HEENT: Pupils equal, round, and reactive to light. Oral mucosa moist. NECK: No JVD, no neck masses. CARDIOVASCULAR: S1 and S2 heard, tachycardic. No murmurs. RESPIRATORY SYSTEM: Normal AP diameter. No accessory muscle use. Mild bilateral rhonchi. No wheezing. ABDOMEN: Soft, bowel sounds present, nontender, nondistended. CENTRAL NERVOUS SYSTEM: Cranial nerves II-XII grossly intact, nonfocal. EXTREMITIES: No edema, no erythema. LABORATORY DATA: WBC 13.7, hemoglobin 12.4, hematocrit 39.1, platelets 139. D- dimer 200. Venous blood gas, pH of 7.39. Sodium 134, potassium 3.5, chloride 99, bicarbonate 24, BUN 11, creatinine 0.8, serum glucose 483, calcium 8.6, magnesium 2.2, total bilirubin 0.3, AST 42, ALT 82, alkaline phosphatase 108. Troponin I less than 0.015. Beta hydroxybutyric acid 2.3. SARS-CoV-2 PCR negative. IMAGING DATA: Chest x-ray, no acute process. EKG: Sinus tachycardia at a rate of 108, left posterior fascicular block, no significant change was found. ASSESSMENT AND PLAN: This is a 41-year-old female who was present with asthma exacerbation. 1. Asthma exacerbation:Failed out patinet treatment. Will start on with nebs around the clock and p.r.n. and [id number] bid d. and monitor the response. If not improving will consult pulmonary. 2. Diabetes: Hyperglycemia. The patient could not tolerate metformin and she was given some semaglutide, which insurance did not approve. She is not officially diagnosed with diabetes yet. The patient is also getting steroids. Will monitor HbA1c levels in the morning. Will give a dose of iv insulin 5 units. Placed on Lantus and insulin sliding scale. Glycemic pharmacy consult and closely monitor. 3. SLE. Plaquenil and Imuran. 4. Depression: Continue Cymbalta. 5. Hypothyroidism: Continue Synthroid. 6. Deep venous thrombosis prophylaxis: Lovenox. DISPOSITION: Closely monitor in the med tele. PT/OT prior to discharge. Social service to help with discharge planning. Job ID: [id number] [facility]ITALErwin
[2021-07-15] MEDS ORDERED: INSULIN GLARGINE SOLOSTAR 100 UNITS/ML 3 ML PEN SC SCH ×2 (02:20→06:45)
[2021-07-15] MEDS ORDERED: LEVALBUTEROL HCL 1.25 MG/3 ML NEB NEB PRN (02:20)
[2021-07-15] MEDS ORDERED: ONDANSETRON INJ 2 MG/ML 2 ML VIAL IV PRN (02:20)
[2021-07-15] MEDS ORDERED: NITROGLYCERIN SL 0.4 MG/TAB TAB SL PRN (02:20)
[2021-07-15] MEDS ORDERED: PHARMACY GLYCEMIC MGMT CONSULT PRN (02:20)
[2021-07-15] MEDS ORDERED: XOPENEX/ATROVENT 1.25mg/0.5MG NEB COMBO NEB SCH (02:20)
[2021-07-15] MEDS ORDERED: ACETAMINOPHEN 325 MG TAB PO PRN (02:20)
[2021-07-15] MEDS ORDERED: ALBUTEROL HFA 8 GM INHALER INH PRN (02:20)
[2021-07-15] MEDS ORDERED: CYCLOBENZAPRINE HCL 10 MG TAB PO PRN (03:13)
[2021-07-15] MEDS ORDERED: MECLIZINE HCL 25 MG TAB PO PRN (03:15)
[2021-07-15] MEDS ORDERED: ONDANSETRON 4 MG OD TAB PO PRN (03:18)
[2021-07-15] MEDS: SODIUM CHLORIDE 0.9% 1000ML 1,000 ML IV SCH ×3 (03:21→17:28)
[2021-07-15] MEDS: INSULIN ASPART 100 UNITS/ML 3 ML PEN SC SCH ×5 (03:34→21:06)
[2021-07-15] MEDS: DOXYCYCLINE HYCLATE 100 MG CAP PO SCH ×3 (03:42→20:35)
[2021-07-15] MEDS: LEVALBUTEROL 1.25MG/0.5ML NEB INH SCH ×4 (03:50→20:04)
[2021-07-15] MEDS: IPRATROPIUM BROMIDE NEB SOLN 0.02% 2.5 ML VIAL INH SCH ×4 (03:51→20:04)
[2021-07-15 05:55] LABS: Basophils # (auto) 0.03 K/uL (0-0.2); Basophils % (auto) 0.3 %; Eosinophils # (auto) 0.01 K/uL (0-0.5); Eosinophils % (auto) 0.1 %; Hematocrit (blood only) 37.4 % (37-47); Hemoglobin 11.7 g/dL (12.0-16.0); Immature Granulocytes # (auto) 0.09 K/uL (0.00-0.02); Immature Granulocytes % (auto) 0.8 %; Lymphocytes % (auto) 11.2 %; Mean Corpuscular Hemoglobin 24.2 pg (25-34); Mean Corpuscular Hgb Conc 31.3 g/dL (32-36); Mean Corpuscular Volume 77.4 fL (80-100); Mean Platelet Volume 11.2 fL (7.4-10.4); Monocytes # (auto) 0.08 K/uL (0.11-0.59); Monocytes % (auto) 0.7 %; Neutrophils # (auto) 9.26 K/uL (1.4-6.5); Neutrophils % (auto) 86.9 %; Platelet Count 133 K/uL (130-400); RDW Coefficient of Variation 16.9 % (11.5-14.5); RDW Standard Deviation 47.8 fL (36.4-46.3); Red Blood Count 4.83 M/uL (4.2-5.4); White Blood Count 10.67 K/uL (4.8-10.8)
[2021-07-15 06:17] LABS: BUN Creatinine Ratio 16.6 (10-20); Calcium 7.8 mg/dl (8.5-10.1); Creatinine Clr Calc Pharmacy 136.7 ml/min; Est GFR (African American) 129.8 ml/min; Magnesium 2.1 mg/dl (1.8-2.4); Potassium 4.1 mmol/L (3.5-5.1)
[2021-07-15] MEDS: LEVOTHYROXINE SODIUM 25 MCG TABLET PO SCH (06:35)
[2021-07-15 06:39] LABS: Beta-Hydroxybutyrate 13.66 mg/dl (0.2-2.81)
--- NOTE | 2021-07-15 07:14 | Hospitalist Progress Note ---
Date of Service July 15, 2021 Assessment & Plan (1) Asthma: (2) Acute hyperglycemia: Plan: This is a 41-year-old female who was present with asthma exacerbation. 1. Asthma exacerbation: Failed outpt treatment. Started on with nebs around the clock and p.r.n. and [id number] bid and monitor the response. Clinically patient is already feeling better, breathing easier 2. Hyperglycemia. New diagnosis of DM type 2 The patient could not tolerate metformin and she was given some semaglutide, which insurance did not approve. She was not officially diagnosed with diabetes yet as outpt. Continue globin A1c 13.8% The patient is also getting steroids. She has been quite hyperglycemic today, and therefore needed to be started on IV insulin Glycemic pharmacy consult and closely monitor. duck bill operator consulted as well. Patient reports history of gestational diabetes, and already has a glucosmeter at home. Also reports her sister has diabetes. 3. SLE. Plaquenil and Imuran. 4. Depression: Continue Cymbalta. 5. Hypothyroidism: Continue Synthroid. DVT ppx: Lovenox. DISPOSITION: Closely monitor in the med tele. Plan to DC home when medically stable Admission and Anticipated Discharge Date Admission Date: July 14, 2021 Subjective Patient seen in follow-up of shortness of breath, asthma Currently she is sitting up in the bed, in no acute distress Currently no fevers, chills, chest pain Says that her breathing is much better In addition hemoglobin A1c elevated, patient actually had to be started on IV insulin today, discussed diabetes management Review of Systems 2 Review of Systems: All systems reviewed & are unremarkable except as noted in Subjective Physical Exam Physical Exam: GENERAL: morbidly obese F, not in acute distress. HEENT: NC/AT, PERRL, EOMI NECK: No JVD, no neck masses. CARDIOVASCULAR: S1 and S2 heard, mildly tachycardic. No murmurs. RESPIRATORY: Normal AP diameter. No accessory muscle use. Mild bilateral rhonchi. No wheezing. ABDOMEN: Soft, bowel sounds present, nontender, nondistended. NEURO: Alert oriented answering questions appropriately, no facial asymmetry, speech fluent, moves extremities EXTREMITIES: No edema, no erythema. Results & Data Results & Data ([facility]) Vital Signs (Past 12 Hours) Vital Signs Temp Pulse Pulse Resp BP BP Pulse Ox 07/15/21 04:49 36.9 C 99 H 20 120/69 97 07/15/21 03:51 87 18 97 07/14/21 22:30 95 07/14/21 22:25 95 07/14/21 22:03 123 H 23 96 07/14/21 21:50 115 H 30 H 95 07/14/21 21:40 114 H 23 97 07/14/21 21:30 117 H 26 H 94 07/14/21 21:20 120 H 16 96 07/14/21 21:10 113 H 30 H 96 07/14/21 21:00 117 H 24 132/82 95 07/14/21 20:50 112 H 24 97 07/14/21 20:40 114 H 12 96 07/14/21 20:30 112 H 108 H 28 H 147/82 H 97 07/14/21 20:20 114 H 17 07/14/21 20:14 110 H 21 Laboratory Results 07/15/21 07/15/21 07/15/21 Range/Units 05:37 05:37 05:37 WBC 10.67 (4.8-10.8) K/uL RBC 4.83 (4.2-5.4) M/uL Hgb 11.7 L (12.0-16.0) g/dL Hct 37.4 (37-47) % MCV 77.4 L (80-100) fL MCH 24.2 L (25-34) pg MCHC 31.3 L (32-36) g/dL RDW Std Deviation 47.8 H (36.4-46.3) fL RDW Coeff of Kelsi 16.9 H (11.5-14.5) % Plt Count 133 (130-400) K/uL MPV 11.2 H (7.4-10.4) fL Immature Gran % (Auto) 0.8 % Neut % (Auto) 86.9 % Lymph % (Auto) 11.2 % Mckean % (Auto) 0.7 % Eos % (Auto) 0.1 % Baso % (Auto) 0.3 % Neut # (Auto) 9.26 H (1.4-6.5) K/uL Lymph # (Auto) 1.20 (1.2-3.4) K/uL Mckean # (Auto) 0.08 L (0.11-0.59) K/uL Eos # (Auto) 0.01 (0-0.5) K/uL Baso # (Auto) 0.03 (0-0.2) K/uL Immature Gran # (Auto) 0.09 H (0.00-0.02) K/uL Neutrophils % (Manual) % Lymphocytes % (Manual) % Monocytes % (Manual) % Eosinophils % (Manual) % Neutrophils # (Manual) (1.4-6.5) K/uL Total Absolute Neuts (1.4-6.5) K/uL Lymphocytes # (Manual) (1.2-3.4) K/uL Total Abs Lymphocytes (1.2-3.4) K/uL Monocytes # (Manual) (0.11-0.59) K/uL Eosinophils # (Manual) (0-0.5) K/uL Platelet Estimate (Normal) D-Dimer (0-500) ug/L FEU VBG pH (7.36-7.41) VBG pCO2 (38-50) mmHg VBG pO2 mmHg VBG HCO3 mmol/L VBG O2 Saturation % VBG Base Excess mEq/L Barometric Pressure mm/Hg Sodium 134 L (136-145) mmol/L Potassium 4.1 D (3.5-5.1) mmol/L Chloride 104 (98-107) mmol/L Carbon Dioxide 23 (21-32) mmol/L Anion Gap 7.0 (3-11) BUN 10 (7-18) mg/dl Creatinine 0.62 (0.6-1.2) mg/dl Est Cr Clr Drug Dosing 136.7 ml/min Est GFR ( Amer) 129.8 ml/min Est GFR (Non-Af Amer) 112.0 ml/min BUN/Creatinine Ratio 16.6 (10-20) Glucose 384 H* (70-99) mg/dl POC Glucose (70-99) mg/dl Estimat Average Glucose Pending Hemoglobin A1c Pending Calcium 7.8 L (8.5-10.1) mg/dl Magnesium 2.1 (1.8-2.4) mg/dl Total Bilirubin (0.2-1) mg/dl AST (15-37) U/L ALT (12-78) U/L Alkaline Phosphatase (45-117) U/L Troponin I (0-0.045) ng/ml Total Protein (6.4-8.2) gm/dl Albumin (3.4-5.0) gm/dl Globulin (2.5-4.0) gm/dl Albumin/Globulin Ratio (0.9-2) Beta-Hydroxybutyric Acd 13.66 H (0.2-2.81) mg/dl COVID-19 Eval Order SARS-CoV-2 (PCR) (Negative) 07/15/21 07/14/21 07/14/21 Range/Units 03:24 20:50 20:33 WBC (4.8-10.8) K/uL RBC (4.2-5.4) M/uL Hgb (12.0-16.0) g/dL Hct (37-47) % MCV (80-100) fL MCH (25-34) pg MCHC (32-36) g/dL RDW Std Deviation (36.4-46.3) fL RDW Coeff of Kelsi (11.5-14.5) % Plt Count (130-400) K/uL MPV (7.4-10.4) fL Immature Gran % (Auto) % Neut % (Auto) % Lymph % (Auto) % Mckean % (Auto) % Eos % (Auto) % Baso % (Auto) % Neut # (Auto) (1.4-6.5) K/uL Lymph # (Auto) (1.2-3.4) K/uL Mckean # (Auto) (0.11-0.59) K/uL Eos # (Auto) (0-0.5) K/uL Baso # (Auto) (0-0.2) K/uL Immature Gran # (Auto) (0.00-0.02) K/uL Neutrophils % (Manual) % Lymphocytes % (Manual) % Monocytes % (Manual) % Eosinophils % (Manual) % Neutrophils # (Manual) (1.4-6.5) K/uL Total Absolute Neuts (1.4-6.5) K/uL Lymphocytes # (Manual) (1.2-3.4) K/uL Total Abs Lymphocytes (1.2-3.4) K/uL Monocytes # (Manual) (0.11-0.59) K/uL Eosinophils # (Manual) (0-0.5) K/uL Platelet Estimate (Normal) D-Dimer 200 (0-500) ug/L FEU VBG pH 7.39 (7.36-7.41) VBG pCO2 41 (38-50) mmHg VBG pO2 32 mmHg VBG HCO3 24 mmol/L VBG O2 Saturation < 60.0 % VBG Base Excess -0.8 mEq/L Barometric Pressure 733.5 mm/Hg Sodium (136-145) mmol/L Potassium (3.5-5.1) mmol/L Chloride (98-107) mmol/L Carbon Dioxide (21-32) mmol/L Anion Gap (3-11) BUN (7-18) mg/dl Creatinine (0.6-1.2) mg/dl Est Cr Clr Drug Dosing ml/min Est GFR ( Amer) ml/min Est GFR (Non-Af Amer) ml/min BUN/Creatinine Ratio (10-20) Glucose (70-99) mg/dl POC Glucose 378 H* (70-99) mg/dl Estimat Average Glucose Hemoglobin A1c Calcium (8.5-10.1) mg/dl Magnesium (1.8-2.4) mg/dl Total Bilirubin (0.2-1) mg/dl AST (15-37) U/L ALT (12-78) U/L Alkaline Phosphatase (45-117) U/L Troponin I (0-0.045) ng/ml Total Protein (6.4-8.2) gm/dl Albumin (3.4-5.0) gm/dl Globulin (2.5-4.0) gm/dl Albumin/Globulin Ratio (0.9-2) Beta-Hydroxybutyric Acd (0.2-2.81) mg/dl COVID-19 Eval Order SARS-CoV-2 (PCR) (Negative) 07/14/21 07/14/21 07/14/21 Range/Units 20:33 20:21 20:21 WBC (4.8-10.8) K/uL RBC (4.2-5.4) M/uL Hgb (12.0-16.0) g/dL Hct (37-47) % MCV (80-100) fL MCH (25-34) pg MCHC (32-36) g/dL RDW Std Deviation (36.4-46.3) fL RDW Coeff of Kelsi (11.5-14.5) % Plt Count (130-400) K/uL MPV (7.4-10.4) fL Immature Gran % (Auto) % Neut % (Auto) % Lymph % (Auto) % Mckean % (Auto) % Eos % (Auto) % Baso % (Auto) % Neut # (Auto) (1.4-6.5) K/uL Lymph # (Auto) (1.2-3.4) K/uL Mckean # (Auto) (0.11-0.59) K/uL Eos # (Auto) (0-0.5) K/uL Baso # (Auto) (0-0.2) K/uL Immature Gran # (Auto) (0.00-0.02) K/uL Neutrophils % (Manual) % Lymphocytes % (Manual) % Monocytes % (Manual) % Eosinophils % (Manual) % Neutrophils # (Manual) (1.4-6.5) K/uL Total Absolute Neuts (1.4-6.5) K/uL Lymphocytes # (Manual) (1.2-3.4) K/uL Total Abs Lymphocytes (1.2-3.4) K/uL Monocytes # (Manual) (0.11-0.59) K/uL Eosinophils # (Manual) (0-0.5) K/uL Platelet Estimate (Normal) D-Dimer (0-500) ug/L FEU VBG pH (7.36-7.41) VBG pCO2 (38-50) mmHg VBG pO2 mmHg VBG HCO3 mmol/L VBG O2 Saturation % VBG Base Excess mEq/L Barometric Pressure mm/Hg Sodium (136-145) mmol/L Potassium (3.5-5.1) mmol/L Chloride (98-107) mmol/L Carbon Dioxide (21-32) mmol/L Anion Gap (3-11) BUN (7-18) mg/dl Creatinine (0.6-1.2) mg/dl Est Cr Clr Drug Dosing ml/min Est GFR ( Amer) ml/min Est GFR (Non-Af Amer) ml/min BUN/Creatinine Ratio (10-20) Glucose (70-99) mg/dl POC Glucose (70-99) mg/dl Estimat Average Glucose Hemoglobin A1c Calcium (8.5-10.1) mg/dl Magnesium (1.8-2.4) mg/dl Total Bilirubin (0.2-1) mg/dl AST (15-37) U/L ALT (12-78) U/L Alkaline Phosphatase (45-117) U/L Troponin I (0-0.045) ng/ml Total Protein (6.4-8.2) gm/dl Albumin (3.4-5.0) gm/dl Globulin (2.5-4.0) gm/dl Albumin/Globulin Ratio (0.9-2) Beta-Hydroxybutyric Acd 2.31 (0.2-2.81) mg/dl COVID-19 Eval Order Cov[facility] at [facility] SARS-CoV-2 (PCR) NEGATIVE (Negative) 07/14/21 07/14/21 Range/Units 18:25 18:25 WBC 13.77 H (4.8-10.8) K/uL RBC 5.06 (4.2-5.4) M/uL Hgb 12.4 (12.0-16.0) g/dL Hct 39.1 (37-47) % MCV 77.3 L (80-100) fL MCH 24.5 L (25-34) pg MCHC 31.7 L (32-36) g/dL RDW Std Deviation 47.4 H (36.4-46.3) fL RDW Coeff of Kelsi 16.9 H (11.5-14.5) % Plt Count 139 (130-400) K/uL MPV 11.9 H (7.4-10.4) fL Immature Gran % (Auto) % Neut % (Auto) % Lymph % (Auto) % Mckean % (Auto) % Eos % (Auto) % Baso % (Auto) % Neut # (Auto) (1.4-6.5) K/uL Lymph # (Auto) (1.2-3.4) K/uL Mckean # (Auto) (0.11-0.59) K/uL Eos # (Auto) (0-0.5) K/uL Baso # (Auto) (0-0.2) K/uL Immature Gran # (Auto) (0.00-0.02) K/uL Neutrophils % (Manual) 75.2 % Lymphocytes % (Manual) 19.5 % Monocytes % (Manual) 4.4 % Eosinophils % (Manual) 0.9 % Neutrophils # (Manual) 10.36 H (1.4-6.5) K/uL Total Absolute Neuts 10.36 H (1.4-6.5) K/uL Lymphocytes # (Manual) 2.69 (1.2-3.4) K/uL Total Abs Lymphocytes 2.69 (1.2-3.4) K/uL Monocytes # (Manual) 0.61 H (0.11-0.59) K/uL Eosinophils # (Manual) 0.12 (0-0.5) K/uL Platelet Estimate Decreased L (Normal) D-Dimer (0-500) ug/L FEU VBG pH (7.36-7.41) VBG pCO2 (38-50) mmHg VBG pO2 mmHg VBG HCO3 mmol/L VBG O2 Saturation % VBG Base Excess mEq/L Barometric Pressure mm/Hg Sodium 134 L (136-145) mmol/L Potassium 3.5 (3.5-5.1) mmol/L Chloride 99 (98-107) mmol/L Carbon Dioxide 24 (21-32) mmol/L Anion Gap 11.0 (3-11) BUN 11 (7-18) mg/dl Creatinine 0.89 (0.6-1.2) mg/dl Est Cr Clr Drug Dosing 95.2 ml/min Est GFR ( Amer) 93.3 ml/min Est GFR (Non-Af Amer) 80.5 ml/min BUN/Creatinine Ratio 12.0 (10-20) Glucose 483 H* (70-99) mg/dl POC Glucose (70-99) mg/dl Estimat Average Glucose Hemoglobin A1c Calcium 8.6 (8.5-10.1) mg/dl Magnesium 2.2 (1.8-2.4) mg/dl Total Bilirubin 0.3 (0.2-1) mg/dl AST 42 H (15-37) U/L ALT 82 H (12-78) U/L Alkaline Phosphatase 108 (45-117) U/L Troponin I < 0.015 (0-0.045) ng/ml Total Protein 7.5 (6.4-8.2) gm/dl Albumin 3.4 (3.4-5.0) gm/dl Globulin 4.1 H (2.5-4.0) gm/dl Albumin/Globulin Ratio 0.8 L (0.9-2) Beta-Hydroxybutyric Acd 1.48 (0.2-2.81) mg/dl COVID-19 Eval Order SARS-CoV-2 (PCR) (Negative) Medications Administered Current Inpatient Medications Acetaminophen (Acetaminophen 325 Mg Tab) 650 mg PO Q4H PRN PRN Reason: Pain or Fever Stop: 08/14/21 02:19 Albuterol (Albuterol Hfa 8 Gm Inhaler) 2 puffs INH Q4H PRN PRN Reason: Shortness Of Breath Or Wheezing Stop: 08/14/21 02:19 Azathioprine (Azathioprine 50 Mg Tab) 100 mg PO HS [facility] Stop: 08/14/21 20:59 Cyclobenzaprine HCl (Cyclobenzaprine Hcl 10 Mg Tab) 10 mg PO BID PRN PRN Reason: Muscle Spasm Stop: 08/14/21 03:12 Docusate Sodium (Docusate Sodium 100 Mg Cap) 100 mg PO BID [facility] Stop: 08/14/21 08:59 Doxycycline Hyclate (Doxycycline Hyclate 100 Mg Cap) 100 mg PO BID [facility] Stop: 07/22/21 02:19 Last Admin: 07/15/21 03:42 Dose: 100 mg Documented by: Duloxetine HCl (Duloxetine Hcl 60 Mg Cap) 60 mg PO HS [facility] Stop: 08/14/21 20:59 Enoxaparin Sodium (Enoxaparin Inj 40 Mg/0.4 Ml Syr) 40 mg SQ Q12H [facility] Stop: 08/14/21 08:59 Ergocalciferol (Ergocalciferol 50,000 Units 1250 Mcg Cap) 50,000 units PO MoFr@0900 [facility] Stop: 08/16/21 08:59 Ferrous Sulfate (Ferrous Sulfate 325 Mg Tab) 325 mg PO DAILY@1000 [facility] Stop: 08/14/21 09:59 Fluticasone/Vilanterol (Fluticasone/Vilanterol 200/25mcg 14 Puffs/Inhaler) 1 puffs INH DAILY [facility] Stop: 08/14/21 08:59 Hydroxychloroquine Sulfate (Hydroxychloroquine Sulfate 200 Mg Tab) 400 mg PO HS [facility] Stop: 08/14/21 20:59 Sodium Chloride (Nss 1000ml) 1,000 mls @ 125 mls/hr IV .Q8H [facility] Stop: 08/14/21 02:19 Last Admin: 07/15/21 03:21 Dose: 125 mls/hr Documented by: Methylprednisolone 40 mg/ (Syringe) 0.64 mls @ 1.5 mls/min IV BID [facility] Stop: 08/14/21 08:59 Insulin Aspart (Insulin Aspart 100 Units/Ml 3 Ml Pen) 0 units SC ACHS [facility]; Protocol Stop: 08/14/21 02:59 Last Admin: 07/15/21 03:34 Dose: 8 units Documented by: Ipratropium [place] (Ipratropium [place] Neb Soln 0.02% 2.5 Ml Vial) 0.5 mg INH Q6R [facility] Stop: 08/14/21 02:19 Last Admin: 07/15/21 03:51 Dose: 0.5 mg Documented by: Levalbuterol HCl (Levalbuterol 1.25mg/0.5ml Neb) 1.25 mg INH Q6R [facility] Stop: 08/14/21 02:19 Last Admin: 07/15/21 03:50 Dose: 1.25 mg Documented by: Levalbuterol HCl (Levalbuterol Hcl 1.25 Mg/3 Ml Neb) 1.25 mg NEB Q2H PRN PRN Reason: Shortness Of Breath Or Wheezing Stop: 08/14/21 02:19 Levothyroxine Sodium (Levothyroxine Sodium 25 Mcg Tablet) 25 mcg PO DAILYBB [facility] Stop: 08/14/21 06:29 Last Admin: 07/15/21 06:35 Dose: 25 mcg Documented by: Meclizine HCl (Meclizine Hcl 25 Mg Tab) 25 mg PO TID PRN PRN Reason: Dizziness Stop: 08/14/21 03:14 Melatonin (Melatonin 3 Mg Tab) 3 mg PO HS PRN PRN Reason: Sleep Stop: 08/14/21 02:19 Miscellaneous ([place] 0.35 Mg Tablet - Order Awaiting Action) 1 ea N/A QS [facility] Stop: 08/14/21 07:59 Miscellaneous Information (Pharmacy Glycemic Mgmt Consult) 1 ea N/A UD PRN PRN Reason: Consult Stop: 08/14/21 02:19 Nitroglycerin (Nitroglycerin Sl 0.4 Mg/Tab Tab) 0.4 mg SL UD PRN PRN Reason: Chest Pain Stop: 08/14/21 02:19 Ondansetron HCl (Ondansetron Inj 2 Mg/Ml 2 Ml Vial) 4 mg IV Q6H PRN PRN Reason: Nausea Stop: 08/14/21 02:19 Ondansetron HCl (Ondansetron 4 Mg Od Tab) 4 mg PO Q6H PRN PRN Reason: Nausea And Vomiting Stop: 08/14/21 03:17 Oxycodone HCl (Oxycodone Hcl Ir 5 Mg Tab (Immediate Release)) 5 mg PO [facility] Stop: 07/29/21 08:59
[2021-07-15 07:23] LABS: Estimated Average Glucose 349 mg/dl; Hemoglobin A1C 13.8 % (4.5-5.6)
[2021-07-15] MEDS: DOCUSATE SODIUM 100 MG CAP PO SCH ×2 (08:18→20:33)
[2021-07-15] MEDS: ENOXAPARIN INJ 40 MG/0.4 ML SYR SQ SCH ×2 (08:19→20:37)
[2021-07-15] MEDS: FERROUS SULFATE 325 MG TAB PO SCH (08:20)
[2021-07-15] MEDS: FLUTICASONE/VILANTEROL 200/25MCG 14 PUFFS/INHALER INH SCH (08:20)
[2021-07-15] MEDS: methylPREDNISolone 40 MG in SYRINGE 0 ML IV SCH ×2 (08:20→20:38)
[2021-07-15] MEDS ORDERED: INSULIN GLARGINE SOLOSTAR 100 UNITS/ML 3 ML PEN SC ONE (08:30)
[2021-07-15] MEDS ORDERED: INSULIN HUMAN REGULAR PER UNIT 8 UNITS in SYRINGE 7.92 ML IV ONE (08:30)
[2021-07-15] MEDS: oxyCODONE HCL IR 5 MG TAB (IMMEDIATE RELEASE) PO SCH (08:30)
[2021-07-15] MEDS ORDERED: STAT IV Infusion **Titration per Protocol STA (12:17)
--- NOTE | 2021-07-15 12:21 | Electrocardiogram Report ---
Test Reason : Blood Pressure : / mmHG Vent. Rate : 108 BPM Atrial Rate : 108 BPM P-R Int : 150 ms QRS Dur : 104 ms QT Int : 372 ms P-R-T Axes : 072 111 057 degrees QTc Int : 498 ms Sinus tachycardia Left posterior fascicular block Abnormal ECG When compared with ECG of 01-JUL-2019 01:08, No significant change was found Confirmed by Perez Casiano ([id number]) on 07/15/2021 12:21:34 PM Referred By: REFERRED SELF Confirmed By:Perez Casiano
[2021-07-15] MEDS ORDERED: NovoLIN-R BOLUS FROM BAG IV ONE (12:30)
[2021-07-15] MEDS ORDERED: INSULIN REGULAR 250 UNITS in SODIUM CHLORIDE 0.9% 247.5 ML IV SCH (12:30)
--- NOTE | 2021-07-15 12:40 | Pharmacy Report ---
Pharmacy Glycemic Short Note 2 - Date of Service July 15, 2021 - Glycemic Short BSG Results (Last 24 hours): 07/14/21 07/15/21 07/15/21 18:25 03:24 05:37 Glucose 483 H* 384 H* POC Glucose 378 H* 07/15/21 07/15/21 07:35 11:37 Glucose POC Glucose 304 H* 306 H* OUTPATIENT ANTIDIABETIC REGIMEN: * None (The patient could not tolerate metformin and she was given some semaglutide, which insurance did not approve. She is not officially diagnosed with diabetes yet) * HbA1c 13.8% ASSESSMENT: * 41 yo F with no prior treatment for diabetes due to tolerability and cost issues admitted with SOB/asthma exacerbation and also found to have a significantly elevated HbA1c. rn diabetes educator consult has been placed. * Steroids for asthma exacerbation ongoing and diet is ordered * BSG's remain >300 mg/dL x 4 checks despite a total of 13 units IV insulin, 24 units of Novolog, and 40 units of Lantus. * Discussed with Dr. Guerrero - initiate an insulin drip at this time. Patient may be able to be transitioned off quickly once the Lantus starts to kick in PLAN FOR INPATIENT GLYCEMIC CONTROL: * Insulin drip - 4 units bolus then 4 units/hr. Goal range 140-180 mg/dL * Basal insulin * Lantus 40 units total given this AM (10+20+10 units) * Bolus insulin (while on drip) * Nutritional / Prandial insulin per carb ratio of 1 unit per 7 grams CHO consumed * Criteria for drip transition (must meet both) * Insulin drip rate less than 1 unit/hr * BSG < 180 mg/dL x2 consecutive checks * Bolus insulin (once ready for drip transition) * NovoLog per scale ACHS (or Q6hrs while NPO) with TWO OVERNIGHT CHECKS * Goal Range: 110-140 mg/dL * Correction Factor: 20 mg/dL/unit * Nutritional / Prandial insulin per carb ratio of 1 unit per 7 grams CHO consumed PLAN FOR DISCHARGE: * tbd - asthma educator consulted
[2021-07-15 14:12] LABS: BUN Creatinine Ratio 17.4 (10-20); Calcium 8.1 mg/dl (8.5-10.1); Creatinine Clr Calc Pharmacy 126.5 ml/min; Est GFR (African American) 126.5 ml/min; Est GFR (Non-African American) 109.2 ml/min; Magnesium 2.3 mg/dl (1.8-2.4); Phosphorus 2.1 mg/dl (2.5-4.9); Potassium 3.8 mmol/L (3.5-5.1)
[2021-07-15] MEDS ORDERED: POTASSIUM CHLORIDE CRTAB 20 MEQ TABCR PO STA (14:48)
[2021-07-15 15:09] LABS: Beta-Hydroxybutyrate 6.96 mg/dl (0.2-2.81)
[2021-07-15] MEDS ORDERED: INSULIN ASPART 100 UNITS/ML 3 ML PEN SC SCH (16:30)
[2021-07-15] MEDS: azaTHIOprine 50 MG TAB PO SCH (20:30)
[2021-07-15] MEDS: DULoxetine HCL 60 MG CAP PO SCH (20:35)
[2021-07-15] MEDS: HYDROXYCHLOROQUINE SULFATE 200 MG TAB PO SCH (20:37)
[2021-07-15] MEDS ORDERED: BENZONATATE 100 MG CAPSULE PO ONE (22:52)
[2021-07-15] MEDS: MELATONIN 3 MG TAB PO PRN (23:13)
[2021-07-15] MEDS: guaiFENesin SUGAR FREE 200 MG/10 ML UDC PO PRN (23:14)
[2021-07-16] MEDS: IPRATROPIUM BROMIDE NEB SOLN 0.02% 2.5 ML VIAL INH SCH ×4 (00:21→19:39)
[2021-07-16] MEDS: LEVALBUTEROL 1.25MG/0.5ML NEB INH SCH ×4 (00:21→19:38)
[2021-07-16] MEDS: SODIUM CHLORIDE 0.9% 1000ML 1,000 ML IV SCH ×2 (02:44→14:37)
[2021-07-16] MEDS: LEVOTHYROXINE SODIUM 25 MCG TABLET PO SCH (05:34)
[2021-07-16 06:09] LABS: BUN Creatinine Ratio 21.7 (10-20); Calcium 8.1 mg/dl (8.5-10.1); Creatinine Clr Calc Pharmacy 159.7 ml/min; Est GFR (African American) 136.7 ml/min; Est GFR (Non-African American) 117.9 ml/min; Magnesium 2.3 mg/dl (1.8-2.4); Potassium 3.7 mmol/L (3.5-5.1)
[2021-07-16 06:13] LABS: Phosphorus 3.1 mg/dl (2.5-4.9)
[2021-07-16] MEDS ORDERED: INSULIN GLARGINE SOLOSTAR 100 UNITS/ML 3 ML PEN SC ONE (07:45)
[2021-07-16] MEDS: BENZONATATE 100 MG CAPSULE PO SCH ×3 (08:45→21:24)
[2021-07-16] MEDS: methylPREDNISolone 40 MG in SYRINGE 0 ML IV SCH (08:45)
[2021-07-16] MEDS: INSULIN ASPART 100 UNITS/ML 3 ML PEN SC SCH ×4 (08:46→21:22)
[2021-07-16] MEDS: FERROUS SULFATE 325 MG TAB PO SCH (08:49)
[2021-07-16] MEDS: DOXYCYCLINE HYCLATE 100 MG CAP PO SCH ×2 (08:50→21:24)
[2021-07-16] MEDS: ENOXAPARIN INJ 40 MG/0.4 ML SYR SQ SCH ×2 (08:50→21:25)
[2021-07-16] MEDS: FLUTICASONE/VILANTEROL 200/25MCG 14 PUFFS/INHALER INH SCH (08:50)
[2021-07-16] MEDS: DOCUSATE SODIUM 100 MG CAP PO SCH ×2 (08:50→21:30)
[2021-07-16] MEDS: oxyCODONE HCL IR 5 MG TAB (IMMEDIATE RELEASE) PO SCH (08:52)
[2021-07-16] MEDS ORDERED: POTASSIUM CHLORIDE CRTAB 20 MEQ TABCR PO STA (08:56)
--- NOTE | 2021-07-16 08:56 | Hospitalist Progress Note ---
Date of Service July 16, 2021 Assessment & Plan (1) Asthma: (2) Acute hyperglycemia: Plan: This is a 41-year-old female who presents with asthma exacerbation. 1. Asthma exacerbation: Failed outpt treatment. Started on with nebs around the clock and p.r.n. and [id number] bid and monitor the response. Clinically patient is already feeling better, breathing easier Switch to PO prednisone 40 daily 2. Hyperglycemia. New diagnosis of DM type 2 The patient could not tolerate metformin and she was given some semaglutide, which insurance did not approve. She was not officially diagnosed with diabetes yet as outpt. Current Hemoglobin A1c 13.8% The patient is also getting steroids. She has been quite hyperglycemic on 07/15, and therefore needed to be started on IV insulin Glycemic pharmacy consulted and closely monitor. inclusion special educator consulted as well. Patient reports history of gestational diabetes, and already has a glucometer at home. Also reports her sister has diabetes. 3. SLE. Plaquenil and Imuran. 4. Depression: Continue Cymbalta. 5. Hypothyroidism: Continue Synthroid. DVT ppx: Lovenox. DISPOSITION: Closely monitor in the med tele. Plan to DC home when medically stable - likely tomorrow Admission and Anticipated Discharge Date Admission Date: July 14, 2021 Subjective Patient seen in follow-up of shortness of breath, asthma Currently she is sitting up in the bed, in no acute distress Currently no fevers, chills, chest pain Says that her breathing is much better In addition hemoglobin A1c elevated, patient actually had to be started on IV insulin yesterday, discussed diabetes management Review of Systems Review of Systems: All systems reviewed & are unremarkable except as noted in Subjective Physical Exam Physical Exam: GENERAL: morbidly obese F, not in acute distress. HEENT: NC/AT, PERRL, EOMI NECK: No JVD, no neck masses. CARDIOVASCULAR: S1 and S2 heard, mildly tachycardic. No murmurs. RESPIRATORY: Normal AP diameter. No accessory muscle use. Mild bilateral rhonchi. No wheezing. ABDOMEN: Soft, bowel sounds present, nontender, nondistended. NEURO: Alert oriented answering questions appropriately, no facial asymmetry, speech fluent, moves extremities EXTREMITIES: No edema, no erythema. Results & Data Results & Data ([facility]) Vital Signs (Past 12 Hours) Vital Signs Temp Pulse Pulse Resp BP BP Pulse Ox 07/16/21 07:44 36.7 C 92 H 20 156/96 H 93 07/16/21 07:35 74 18 95 07/16/21 02:37 36.7 C 80 18 123/87 93 07/16/21 00:21 86 18 95 07/15/21 23:00 88 07/15/21 22:10 36.7 C 91 H 18 151/82 H 93 Laboratory Results 07/16/21 07/16/21 07/16/21 Range/Units 08:42 07:37 06:36 Sodium (136-145) mmol/L Potassium (3.5-5.1) mmol/L Chloride (98-107) mmol/L Carbon Dioxide (21-32) mmol/L Anion Gap (3-11) BUN (7-18) mg/dl Creatinine (0.6-1.2) mg/dl Est Cr Clr Drug Dosing ml/min Est GFR ( Amer) ml/min Est GFR (Non-Af Amer) ml/min BUN/Creatinine Ratio (10-20) Glucose (70-99) mg/dl POC Glucose 163 H 130 H 160 H (70-99) mg/dl Calcium (8.5-10.1) mg/dl Phosphorus (2.5-4.9) mg/dl Magnesium (1.8-2.4) mg/dl Beta-Hydroxybutyric Acd (0.2-2.81) mg/dl 07/16/21 07/16/21 07/16/21 Range/Units 05:37 05:25 04:43 Sodium 139 (136-145) mmol/L Potassium 3.7 (3.5-5.1) mmol/L Chloride 110 H (98-107) mmol/L Carbon Dioxide 24 (21-32) mmol/L Anion Gap 5.0 (3-11) BUN 12 (7-18) mg/dl Creatinine 0.53 L (0.6-1.2) mg/dl Est Cr Clr Drug Dosing 159.7 ml/min Est GFR ( Amer) 136.7 ml/min Est GFR (Non-Af Amer) 117.9 ml/min BUN/Creatinine Ratio 21.7 H (10-20) Glucose 204 H (70-99) mg/dl POC Glucose 188 H 199 H (70-99) mg/dl Calcium 8.1 L (8.5-10.1) mg/dl Phosphorus 3.1 D (2.5-4.9) mg/dl Magnesium 2.3 (1.8-2.4) mg/dl Beta-Hydroxybutyric Acd (0.2-2.81) mg/dl 07/16/21 07/16/21 07/16/21 Range/Units 03:43 02:40 01:49 Sodium (136-145) mmol/L Potassium (3.5-5.1) mmol/L Chloride (98-107) mmol/L Carbon Dioxide (21-32) mmol/L Anion Gap (3-11) BUN (7-18) mg/dl Creatinine (0.6-1.2) mg/dl Est Cr Clr Drug Dosing ml/min Est GFR ( Amer) ml/min Est GFR (Non-Af Amer) ml/min BUN/Creatinine Ratio (10-20) Glucose (70-99) mg/dl POC Glucose 231 H 219 H 215 H (70-99) mg/dl Calcium (8.5-10.1) mg/dl Phosphorus (2.5-4.9) mg/dl Magnesium (1.8-2.4) mg/dl Beta-Hydroxybutyric Acd (0.2-2.81) mg/dl 07/16/21 07/15/21 07/15/21 Range/Units 00:40 23:02 21:58 Sodium (136-145) mmol/L Potassium (3.5-5.1) mmol/L Chloride (98-107) mmol/L Carbon Dioxide (21-32) mmol/L Anion Gap (3-11) BUN (7-18) mg/dl Creatinine (0.6-1.2) mg/dl Est Cr Clr Drug Dosing ml/min Est GFR ( Amer) ml/min Est GFR (Non-Af Amer) ml/min BUN/Creatinine Ratio (10-20) Glucose (70-99) mg/dl POC Glucose 220 H 164 H 219 H (70-99) mg/dl Calcium (8.5-10.1) mg/dl Phosphorus (2.5-4.9) mg/dl Magnesium (1.8-2.4) mg/dl Beta-Hydroxybutyric Acd (0.2-2.81) mg/dl 07/15/21 07/15/21 07/15/21 Range/Units 20:58 20:02 19:01 Sodium (136-145) mmol/L Potassium (3.5-5.1) mmol/L Chloride (98-107) mmol/L Carbon Dioxide (21-32) mmol/L Anion Gap (3-11) BUN (7-18) mg/dl Creatinine (0.6-1.2) mg/dl Est Cr Clr Drug Dosing ml/min Est GFR ( Amer) ml/min Est GFR (Non-Af Amer) ml/min BUN/Creatinine Ratio (20) Glucose (70-99) mg/dl POC Glucose 164 H 167 H 213 H (70-99) mg/dl Calcium (8.5-10.1) mg/dl Phosphorus (2.5-4.9) mg/dl Magnesium (1.8-2.4) mg/dl Beta-Hydroxybutyric Acd (0.2-2.81) mg/dl 07/15/21 07/15/21 07/15/21 Range/Units 17:48 16:54 15:41 Sodium (136-145) mmol/L Potassium (3.5-5.1) mmol/L Chloride (98-107) mmol/L Carbon Dioxide (21-32) mmol/L Anion Gap (3-11) BUN (7-18) mg/dl Creatinine (0.6-1.2) mg/dl Est Cr Clr Drug Dosing ml/min Est GFR ( Amer) ml/min Est GFR (Non-Af Amer) ml/min BUN/Creatinine Ratio (07-22) Glucose (70-99) mg/dl POC Glucose 303 H* 253 H 282 H (70-99) mg/dl Calcium (8.5-10.1) mg/dl Phosphorus (2.5-4.9) mg/dl Magnesium (1.8-2.4) mg/dl Beta-Hydroxybutyric Acd (0.2-2.81) mg/dl 07/15/21 07/15/21 07/15/21 Range/Units 14:41 13:37 11:37 Sodium 134 L (136-145) mmol/L Potassium 3.8 (3.5-5.1) mmol/L Chloride 105 (98-107) mmol/L Carbon Dioxide 20 L (21-32) mmol/L Anion Gap 10.0 (3-11) BUN 12 (7-18) mg/dl Creatinine 0.67 (0.6-1.2) mg/dl Est Cr Clr Drug Dosing 126.5 ml/min Est GFR ( Amer) 126.5 ml/min Est GFR (Non-Af Amer) 109.2 ml/min BUN/Creatinine Ratio 17.4 (10-20) Glucose 359 H* (70-99) mg/dl POC Glucose 306 H* 306 H* (70-99) mg/dl Calcium 8.1 L (8.5-10.1) mg/dl Phosphorus 2.1 L (2.5-4.9) mg/dl Magnesium 2.3 (1.8-2.4) mg/dl Beta-Hydroxybutyric Acd 6.96 H (0.2-2.81) mg/dl Medications Administered Current Inpatient Medications Acetaminophen (Acetaminophen 325 Mg Tab) 650 mg PO Q4H PRN PRN Reason: Pain or Fever Stop: 08/14/21 02:19 Albuterol (Albuterol Hfa 8 Gm Inhaler) 2 puffs INH Q4H PRN PRN Reason: Shortness Of Breath Or Wheezing Stop: 08/14/21 02:19 Azathioprine (Azathioprine 50 Mg Tab) 100 mg PO HS [facility] Stop: 08/14/21 20:59 Last Admin: 07/15/21 20:30 Dose: 100 mg Documented by: Benzonatate (Benzonatate 100 Mg Capsule) 100 mg PO TID [facility] Stop: 08/15/21 08:59 Last Admin: 07/16/21 08:45 Dose: 100 mg Documented by: Cyclobenzaprine HCl (Cyclobenzaprine Hcl 10 Mg Tab) 10 mg PO BID PRN PRN Reason: Muscle Spasm Stop: 08/14/21 03:12 Docusate Sodium (Docusate Sodium 100 Mg Cap) 100 mg PO BID [facility] Stop: 08/14/21 08:59 Last Admin: 07/16/21 08:50 Dose: 100 mg Documented by: Doxycycline Hyclate (Doxycycline Hyclate 100 Mg Cap) 100 mg PO BID [facility] Stop: 07/22/21 02:19 Last Admin: 07/16/21 08:50 Dose: 100 mg Documented by: Duloxetine HCl (Duloxetine Hcl 60 Mg Cap) 60 mg PO HS [facility] Stop: 08/14/21 20:59 Last Admin: 07/15/21 20:35 Dose: 60 mg Documented by: Enoxaparin Sodium (Enoxaparin Inj 40 Mg/0.4 Ml Syr) 40 mg SQ Q12H [facility] Stop: 08/14/21 08:59 Last Admin: 07/16/21 08:50 Dose: 40 mg Documented by: Ergocalciferol (Ergocalciferol 50,000 Units 1250 Mcg Cap) 50,000 units PO MoFr@0900 [facility] Stop: 08/16/21 08:59 Ferrous Sulfate (Ferrous Sulfate 325 Mg Tab) 325 mg PO DAILY@1000 [facility] Stop: 08/14/21 09:59 Last Admin: 07/16/21 08:49 Dose: 325 mg Documented by: Fluticasone/Vilanterol (Fluticasone/Vilanterol 200/25mcg 14 Puffs/Inhaler) 1 puffs INH DAILY [facility] Stop: 08/14/21 08:59 Last Admin: 07/16/21 08:50 Dose: 1 puffs Documented by: Guaifenesin (Guaifenesin Sugar Free 200 Mg/10 Ml Udc) 200 mg PO Q6H PRN PRN Reason: Cough Stop: 08/14/21 22:52 Last Admin: 07/15/21 23:14 Dose: 200 mg Documented by: Hydroxychloroquine Sulfate (Hydroxychloroquine Sulfate 200 Mg Tab) 400 mg PO HS [facility] Stop: 08/14/21 20:59 Last Admin: 07/15/21 20:37 Dose: 400 mg Documented by: Sodium Chloride (Nss 1000ml) 1,000 mls @ 75 mls/hr IV .[id number] [facility] Stop: 08/14/21 02:19 Last Admin: 07/16/21 02:44 Dose: 75 mls/hr Documented by: Methylprednisolone 40 mg/ (Syringe) 0.64 mls @ 1.5 mls/min IV BID [facility] Stop: 08/14/21 08:59 Last Admin: 07/16/21 08:45 Dose: 1.5 mls/min Documented by: Insulin Human Regular 250 (units/ Sodium Chloride) 250 mls @ 3.2 mls/hr IV .Q24H [facility]; Protocol Stop: 08/14/21 12:29 Last Titration: 07/16/21 08:47 Dose: 3.8 units/hr, 3.8 mls/hr Documented by: Insulin Aspart (Insulin Aspart 100 Units/Ml 3 Ml Pen) 0 units SC ACHS [facility]; Protocol Stop: 08/14/21 11:29 Last Admin: 07/16/21 08:46 Dose: 8 units Documented by: Ipratropium [place] (Ipratropium [place] Neb Soln 0.02% 2.5 Ml Vial) 0.5 mg INH Q6R [facility] Stop: 08/14/21 02:19 Last Admin: 07/16/21 07:30 Dose: 0.5 mg Documented by: Levalbuterol HCl (Levalbuterol 1.25mg/0.5ml Neb) 1.25 mg INH Q6R [facility] Stop: 08/14/21 02:19 Last Admin: 07/16/21 07:30 Dose: 1.25 mg Documented by: Levalbuterol HCl (Levalbuterol Hcl 1.25 Mg/3 Ml Neb) 1.25 mg NEB Q2H PRN PRN Reason: Shortness Of Breath Or Wheezing Stop: 08/14/21 02:19 Levothyroxine Sodium (Levothyroxine Sodium 25 Mcg Tablet) 25 mcg PO DAILYBB [facility] Stop: 08/14/21 06:29 Last Admin: 07/16/21 05:34 Dose: 25 mcg Documented by: Meclizine HCl (Meclizine Hcl 25 Mg Tab) 25 mg PO TID PRN PRN Reason: Dizziness Stop: 08/14/21 03:14 Melatonin (Melatonin 3 Mg Tab) 3 mg PO HS PRN PRN Reason: Sleep Stop: 08/14/21 02:19 Last Admin: 07/15/21 23:13 Dose: 3 mg Documented by: Miscellaneous ([place] 0.35 Mg Tablet - Order Awaiting Action) 1 ea N/A QS [facility] Stop: 08/14/21 07:59 Last Admin: 07/16/21 08:45 Dose: Not Given Documented by: Miscellaneous (Insulin Drip Transition Criteria - Pending Order) 1 ea N/A QS [facility] Stop: 08/14/21 12:29 Last Admin: 07/16/21 00:51 Dose: Not Given Documented by: Miscellaneous Information (Pharmacy Glycemic Mgmt Consult) 1 ea N/A UD PRN PRN Reason: Consult Stop: 08/14/21 02:19 Nitroglycerin (Nitroglycerin Sl 0.4 Mg/Tab Tab) 0.4 mg SL UD PRN PRN Reason: Chest Pain Stop: 08/14/21 02:19 Ondansetron HCl (Ondansetron Inj 2 Mg/Ml 2 Ml Vial) 4 mg IV Q6H PRN PRN Reason: Nausea Stop: 08/14/21 02:19 Last Admin: 07/16/21 08:07 Dose: 4 mg Documented by: Ondansetron HCl (Ondansetron 4 Mg Od Tab) 4 mg PO Q6H PRN PRN Reason: Nausea And Vomiting Stop: 08/14/21 03:17 Oxycodone HCl (Oxycodone Hcl Ir 5 Mg Tab (Immediate Release)) 5 mg PO [facility] Stop: 07/29/21 08:59 Last Admin: 07/16/21 08:52 Dose: 5 mg Documented by:
[2021-07-16] MEDS ORDERED: NovoLIN-N (NPH) PER UNIT CHARGE SQ ONE (10:00)
--- NOTE | 2021-07-16 15:43 | Pharmacy Report ---
Pharmacy Glycemic Short Note 2 - Date of Service July 16, 2021 - Glycemic Short BSG Results (Last 24 hours): 07/15/21 07/15/21 07/15/21 15:41 16:54 17:48 Glucose POC Glucose 282 H 253 H 303 H* 07/15/21 07/15/21 07/15/21 19:01 20:02 20:58 Glucose POC Glucose 213 H 167 H 164 H 07/15/21 07/15/21 07/16/21 21:58 23:02 00:40 Glucose POC Glucose 219 H 164 H 220 H 07/16/21 07/16/21 07/16/21 01:49 02:40 03:43 Glucose POC Glucose 215 H 219 H 231 H 07/16/21 07/16/21 07/16/21 04:43 05:25 05:37 Glucose 204 H POC Glucose 199 H 188 H 07/16/21 07/16/21 07/16/21 06:36 07:37 08:42 Glucose POC Glucose 160 H 130 H 163 H 07/16/21 07/16/21 07/16/21 09:44 10:45 11:43 Glucose POC Glucose 270 H 179 H 145 H OUTPATIENT ANTIDIABETIC REGIMEN: * None (The patient could not tolerate metformin and she was given some semaglutide, which insurance did not approve. She is not officially diagnosed with diabetes yet) * HbA1c 13.8% ASSESSMENT: 07/16 * Insulin infusion running @ 6.4 units/hr this morning, gave 45 units of lantus as patient had been eating * Solumedrol 40 mg BID being titrated to prednisone 40 mg daily tomorrow. Will reassess lantus/NPH dosing need tomorrow. * Insulin infusion was titrated off around lunch time, with an additional 15 units of NPH. Novolog currently dosed at weight based stress of 3 07/15 * 41 yo F with no prior treatment for diabetes due to tolerability and cost issues admitted with SOB/asthma exacerbation and also found to have a significantly elevated HbA1c. in service educator consult has been placed. * Steroids for asthma exacerbation ongoing and diet is ordered * BSG's remain >300 mg/dL x 4 checks despite a total of 13 units IV insulin, 24 units of Novolog, and 40 units of Lantus. * Discussed with Dr. Guerrero - initiate an insulin drip at this time. Patient may be able to be transitioned off quickly once the Lantus starts to kick in PLAN FOR INPATIENT GLYCEMIC CONTROL: * Basal insulin * Lantus 45 units total given this AM * Bolus insulin (once ready for drip transition) * NovoLog per scale ACHS (or Q6hrs while NPO) * Goal Range: 110-140 mg/dL * Correction Factor: 20 mg/dL/unit * Nutritional / Prandial insulin per carb ratio of 1 unit per 7 grams CHO consumed PLAN FOR DISCHARGE: * tbd - family living educator consulted
[2021-07-16] MEDS: guaiFENesin SUGAR FREE 200 MG/10 ML UDC PO PRN (21:22)
[2021-07-16] MEDS: HYDROXYCHLOROQUINE SULFATE 200 MG TAB PO SCH (21:24)
[2021-07-16] MEDS: azaTHIOprine 50 MG TAB PO SCH (21:24)
[2021-07-16] MEDS: DULoxetine HCL 60 MG CAP PO SCH (21:25)
[2021-07-16] MEDS: MELATONIN 3 MG TAB PO PRN (21:27)
[2021-07-17] MEDS: INSULIN ASPART 100 UNITS/ML 3 ML PEN SC SCH ×4 (00:09→12:26)
[2021-07-17] MEDS: IPRATROPIUM BROMIDE NEB SOLN 0.02% 2.5 ML VIAL INH SCH ×3 (01:02→13:44)
[2021-07-17] MEDS: LEVALBUTEROL 1.25MG/0.5ML NEB INH SCH ×3 (01:03→13:44)
[2021-07-17] MEDS: SODIUM CHLORIDE 0.9% 1000ML 1,000 ML IV SCH (02:30)
[2021-07-17] MEDS: LEVOTHYROXINE SODIUM 25 MCG TABLET PO SCH (06:08)
[2021-07-17 07:02] LABS: BUN Creatinine Ratio 25.3 (10-20); Calcium 7.7 mg/dl (8.5-10.1); Creatinine Clr Calc Pharmacy 159.5 ml/min; Est GFR (African American) 136.7 ml/min; Est GFR (Non-African American) 117.9 ml/min; Magnesium 1.9 mg/dl (1.8-2.4); Potassium 3.2 mmol/L (3.5-5.1)
[2021-07-17 07:28] LABS: Phosphorus 4.2 mg/dl (2.5-4.9)
[2021-07-17] MEDS: BENZONATATE 100 MG CAPSULE PO SCH ×2 (08:32→13:36)
--- NOTE | 2021-07-17 08:32 | Hospitalist Progress Note ---
Date of Service July 17, 2021 Assessment & Plan (1) Asthma: (2) Acute hyperglycemia: Plan: This is a 41-year-old female who presents with asthma exacerbation. 1. Asthma exacerbation: Failed outpt treatment. Started on with nebs around the clock and p.r.n. and [id number] bid and monitor the response. Clinically patient is already feeling better, breathing easier Switched to PO prednisone 40 daily, taper down on DC 2. Hyperglycemia. New diagnosis of DM type 2 The patient could not tolerate metformin and she was given some semaglutide, which insurance did not approve. She was not officially diagnosed with diabetes yet as outpt. Current Hemoglobin A1c 13.8% The patient is also getting steroids. She has been quite hyperglycemic on 07/15, and therefore needed to be started on IV insulin Glycemic pharmacy consulted and closely monitor. chemical educator consulted as well. Patient reports history of gestational diabetes, and already has a glucometer at home. Also reports her sister has diabetes. Plan to DC on Lantus 24 units SQ daily (and closely follow up with primary care doctor for titration) Novolog 5 units with meals Expect that patient's BSGs will be slightly high with steroids but insulin requirements will decrease once prednisone discontinued. 3. SLE. Plaquenil and Imuran. 4. Depression: Continue Cymbalta. 5. Hypothyroidism: Continue Synthroid. DVT ppx: Lovenox. DISPOSITION: Closely monitor in the med tele. Plan to DC home when medically stable - likely tomorrow Admission and Anticipated Discharge Date Admission Date: July 14, 2021 Subjective Patient seen in follow-up of shortness of breath, asthma Currently she is sitting up in the bed, in no acute distress No fevers, chills, chest pain Says that her breathing is much better In addition, hemoglobin A1c elevated, started on insulin, new DM Review of Systems Review of Systems: All systems reviewed & are unremarkable except as noted in Subjective Physical Exam Physical Exam: GENERAL: morbidly obese F, not in acute distress. HEENT: NC/AT, PERRL, EOMI NECK: No JVD, no neck masses. CARDIOVASCULAR: S1 and S2 heard, mildly tachycardic. No murmurs. RESPIRATORY: Normal AP diameter. No accessory muscle use. Mild bilateral rhonchi. No wheezing. ABDOMEN: Soft, bowel sounds present, nontender, nondistended. NEURO: Alert oriented answering questions appropriately, no facial asymmetry, speech fluent, moves extremities EXTREMITIES: No edema, no erythema. Results & Data Results & Data ([facility]) Vital Signs (Past 12 Hours) Vital Signs Temp Pulse Pulse Resp BP Pulse Ox 07/17/21 07:33 98 H 18 96 07/16/21 23:00 79 07/16/21 22:18 36.6 C 83 18 133/73 93 Laboratory Results 07/17/21 07/17/21 07/17/21 Range/Units 08:09 05:46 04:49 Sodium 137 (136-145) mmol/L Potassium 3.2 L (3.5-5.1) mmol/L Chloride 105 (98-107) mmol/L Carbon Dioxide 26 (21-32) mmol/L Anion Gap 6.0 (3-11) BUN 13 (7-18) mg/dl Creatinine 0.53 L (0.6-1.2) mg/dl Est Cr Clr Drug Dosing 159.5 ml/min Est GFR ( Amer) 136.7 ml/min Est GFR (Non-Af Amer) 117.9 ml/min BUN/Creatinine Ratio 25.3 H (10-20) Glucose 161 H (70-99) mg/dl POC Glucose 177 H 135 H (70-99) mg/dl Calcium 7.7 L (8.5-10.1) mg/dl Phosphorus 4.2 D (2.5-4.9) mg/dl Magnesium 1.9 (1.8-2.4) mg/dl 07/17/21 07/16/21 07/16/21 Range/Units 00:05 20:08 16:24 Sodium (136-145) mmol/L Potassium (3.5-5.1) mmol/L Chloride (98-107) mmol/L Carbon Dioxide (21-32) mmol/L Anion Gap (3-11) BUN (7-18) mg/dl Creatinine (0.6-1.2) mg/dl Est Cr Clr Drug Dosing ml/min Est GFR ( Amer) ml/min Est GFR (Non-Af Amer) ml/min BUN/Creatinine Ratio (10-20) Glucose (70-99) mg/dl POC Glucose 156 H 195 H 250 H (70-99) mg/dl Calcium (8.5-10.1) mg/dl Phosphorus (2.5-4.9) mg/dl Magnesium (1.8-2.4) mg/dl 07/16/21 07/16/21 07/16/21 Range/Units 11:43 10:45 09:44 Sodium (136-145) mmol/L Potassium (3.5-5.1) mmol/L Chloride (98-107) mmol/L Carbon Dioxide (21-32) mmol/L Anion Gap (3-11) BUN (7-18) mg/dl Creatinine (0.6-1.2) mg/dl Est Cr Clr Drug Dosing ml/min Est GFR ( Amer) ml/min Est GFR (Non-Af Amer) ml/min BUN/Creatinine Ratio (10-20) Glucose (70-99) mg/dl POC Glucose 145 H 179 H 270 H (70-99) mg/dl Calcium (8.5-10.1) mg/dl Phosphorus (2.5-4.9) mg/dl Magnesium (1.8-2.4) mg/dl 07/16/21 Range/Units 08:42 Sodium (136-145) mmol/L Potassium (3.5-5.1) mmol/L Chloride (98-107) mmol/L Carbon Dioxide (21-32) mmol/L Anion Gap (3-11) BUN (7-18) mg/dl Creatinine (0.6-1.2) mg/dl Est Cr Clr Drug Dosing ml/min Est GFR ( Amer) ml/min Est GFR (Non-Af Amer) ml/min BUN/Creatinine Ratio (10-20) Glucose (70-99) mg/dl POC Glucose 163 H (70-99) mg/dl Calcium (8.5-10.1) mg/dl Phosphorus (2.5-4.9) mg/dl Magnesium (1.8-2.4) mg/dl Medications Administered Current Inpatient Medications Acetaminophen (Acetaminophen 325 Mg Tab) 650 mg PO Q4H PRN PRN Reason: Pain or Fever Stop: 08/14/21 02:19 Albuterol (Albuterol Hfa 8 Gm Inhaler) 2 puffs INH Q4H PRN PRN Reason: Shortness Of Breath Or Wheezing Stop: 08/14/21 02:19 Azathioprine (Azathioprine 50 Mg Tab) 100 mg PO HS [facility] Stop: 08/14/21 20:59 Last Admin: 07/16/21 21:24 Dose: 100 mg Documented by: Benzonatate (Benzonatate 100 Mg Capsule) 100 mg PO TID [facility] Stop: 08/15/21 08:59 Last Admin: 07/16/21 21:24 Dose: 100 mg Documented by: Cyclobenzaprine HCl (Cyclobenzaprine Hcl 10 Mg Tab) 10 mg PO BID PRN PRN Reason: Muscle Spasm Stop: 08/14/21 03:12 Docusate Sodium (Docusate Sodium 100 Mg Cap) 100 mg PO BID [facility] Stop: 08/14/21 08:59 Last Admin: 07/16/21 21:30 Dose: 100 mg Documented by: Doxycycline Hyclate (Doxycycline Hyclate 100 Mg Cap) 100 mg PO BID [facility]CLUDES [facility] Stop: 07/22/21 02:19 Last Admin: 07/16/21 21:24 Dose: 100 mg Documented by: Duloxetine HCl (Duloxetine Hcl 60 Mg Cap) 60 mg PO HS [facility]CLUDES [facility] Stop: 08/14/21 20:59 Last Admin: 07/16/21 21:25 Dose: 60 mg Documented by: Enoxaparin Sodium (Enoxaparin Inj 40 Mg/0.4 Ml Syr) 40 mg SQ Q12H COUNT [facility]CLUDES [facility] Stop: 08/14/21 08:59 Last Admin: 07/16/21 21:25 Dose: 40 mg Documented by: Ergocalciferol (Ergocalciferol 50,000 Units 1250 Mcg Cap) 50,000 units PO MoFr@0900 [facility]CLUDES [facility] Stop: 08/16/21 08:59 Ferrous Sulfate (Ferrous Sulfate 325 Mg Tab) 325 mg PO DAILY@1000 [facility]CLUDES [facility] Stop: 08/14/21 09:59 Last Admin: 07/16/21 08:49 Dose: 325 mg Documented by: Fluticasone/Vilanterol (Fluticasone/Vilanterol 200/25mcg 14 Puffs/Inhaler) 1 puffs INH DAILY COUNT INCLUDES THE [facility] Stop: 08/14/21 08:59 Last Admin: 07/16/21 08:50 Dose: 1 puffs Documented by: Guaifenesin (Guaifenesin Sugar Free 200 Mg/10 Ml Udc) 200 mg PO Q6H PRN PRN Reason: Cough Stop: 08/14/21 22:52 Last Admin: 07/16/21 21:22 Dose: 200 mg Documented by: Hydroxychloroquine Sulfate (Hydroxychloroquine Sulfate 200 Mg Tab) 400 mg PO HS [facility]CLUDES [facility] Stop: 08/14/21 20:59 Last Admin: 07/16/21 21:24 Dose: 400 mg Documented by: Insulin Aspart (Insulin Aspart 100 Units/Ml 3 Ml Pen) 0 units SC ACHS [facility] INCLUDES THE [facility]; Protocol Stop: 08/14/21 11:29 Last Admin: 07/17/21 08:25 Dose: 8 units Documented by: Insulin Aspart (Insulin Aspart 100 Units/Ml 3 Ml Pen) 0 units SC 0000,0400 COUNT INCLUDES THE [facility]; Protocol Stop: 08/16/21 00:00 Last Admin: 07/17/21 04:51 Dose: Not Given Documented by: Insulin Glargine (Insulin Glargine Solostar 100 Units/Ml 3 Ml Pen) 36 units SC NOW ONE Stop: 07/17/21 09:01 Last Admin: 07/17/21 08:28 Dose: 36 units Documented by: Insulin Human NPH (Insulin Human Nph) 40 units SC DAILY COUNT INCLUDES THE [facility] Stop: 08/16/21 08:59 Ipratropium [place] (Ipratropium [place] Neb Soln 0.02% 2.5 Ml Vial) 0.5 mg INH Q6R COUNT INCLUDES THE [facility] Stop: 08/14/21 02:19 Last Admin: 07/17/21 07:32 Dose: 0.5 mg Documented by: Levalbuterol HCl (Levalbuterol 1.25mg/0.5ml Neb) 1.25 mg INH Q6R COUNT INCLUDES THE [facility] Stop: 08/14/21 02:19 Last Admin: 07/17/21 07:32 Dose: 1.25 mg Documented by: Levalbuterol HCl (Levalbuterol Hcl 1.25 Mg/3 Ml Neb) 1.25 mg NEB Q2H PRN PRN Reason: Shortness Of Breath Or Wheezing Stop: 08/14/21 02:19 Levothyroxine Sodium (Levothyroxine Sodium 25 Mcg Tablet) 25 mcg PO DAILYBB COUNT INCLUDES THE [facility] Stop: 08/14/21 06:29 Last Admin: 07/17/21 06:08 Dose: 25 mcg Documented by: Meclizine HCl (Meclizine Hcl 25 Mg Tab) 25 mg PO TID PRN PRN Reason: Dizziness Stop: 08/14/21 03:14 Melatonin (Melatonin 3 Mg Tab) 3 mg PO HS PRN PRN Reason: Sleep Stop: 08/14/21 02:19 Last Admin: 07/16/21 21:27 Dose: 3 mg Documented by: Miscellaneous ([place] 0.35 Mg Tablet - Order Awaiting Action) 1 ea N/A QS [facility] Stop: 08/14/21 07:59 Last Admin: 07/16/21 23:44 Dose: Not Given Documented by: Miscellaneous Information (Pharmacy Glycemic Mgmt Consult) 1 ea N/A UD PRN PRN Reason: Consult Stop: 08/14/21 02:19 Nitroglycerin (Nitroglycerin Sl 0.4 Mg/Tab Tab) 0.4 mg SL UD PRN PRN Reason: Chest Pain Stop: 08/14/21 02:19 Ondansetron HCl (Ondansetron Inj 2 Mg/Ml 2 Ml Vial) 4 mg IV Q6H PRN PRN Reason: Nausea Stop: 08/14/21 02:19 Last Admin: 07/16/21 08:07 Dose: 4 mg Documented by: Ondansetron HCl (Ondansetron 4 Mg Od Tab) 4 mg PO Q6H PRN PRN Reason: Nausea And Vomiting Stop: 08/14/21 03:17 Oxycodone HCl (Oxycodone Hcl Ir 5 Mg Tab (Immediate Release)) [facility] Stop: 07/29/21 08:59 Last Admin: 07/16/21 08:52 Dose: 5 mg Documented by: Potassium Chloride (Potassium Chloride Crtab 20 Meq Tabcr) 40 meq PO NOW STA Stop: 07/17/21 08:31 Prednisone (Prednisone 20 Mg Tab) 40 mg PO QAM COUNT INCLUDES THE [facility] Stop: 08/16/21 08:59
[2021-07-17] MEDS: ENOXAPARIN INJ 40 MG/0.4 ML SYR SQ SCH (08:33)
[2021-07-17] MEDS: DOXYCYCLINE HYCLATE 100 MG CAP PO SCH (08:34)
[2021-07-17] MEDS: FLUTICASONE/VILANTEROL 200/25MCG 14 PUFFS/INHALER INH SCH (08:36)
[2021-07-17] MEDS ORDERED: POTASSIUM CHLORIDE CRTAB 20 MEQ TABCR PO STA ×2 (08:40→14:34)
[2021-07-17] MEDS: oxyCODONE HCL IR 5 MG TAB (IMMEDIATE RELEASE) PO SCH (08:50)
[2021-07-17] MEDS: DOCUSATE SODIUM 100 MG CAP PO SCH (08:52)
[2021-07-17] MEDS ORDERED: INSULIN HUMAN NPH SC SCH (09:00)
[2021-07-17] MEDS ORDERED: INSULIN GLARGINE SOLOSTAR 100 UNITS/ML 3 ML PEN SC ONE (09:00)
[2021-07-17] MEDS ORDERED: predniSONE 20 MG TAB PO SCH (09:00)
[2021-07-17] MEDS ORDERED: ERGOCALCIFEROL 50,000 UNITS 1250 MCG CAP PO SCH (09:00)
[2021-07-17] MEDS: FERROUS SULFATE 325 MG TAB PO SCH (11:34)
--- NOTE | 2021-07-17 12:19 | Pharmacy Report ---
Pharmacy Glycemic Short Note 2 - Date of Service July 17, 2021 - Glycemic Short BSG Results (Last 24 hours): 07/16/21 07/16/21 07/17/21 16:24 20:08 00:05 Glucose POC Glucose 250 H 195 H 156 H 07/17/21 07/17/21 07/17/21 04:49 05:46 08:09 Glucose 161 H POC Glucose 135 H 177 H 07/17/21 11:37 Glucose POC Glucose 230 H OUTPATIENT ANTIDIABETIC REGIMEN: * None (The patient could not tolerate metformin and she was given some semaglutide, which insurance did not approve. She is not officially diagnosed with diabetes yet) * HbA1c 13.8% ASSESSMENT: 07/17/21 * Pt has received 96 units of insulin over the past 24hrs * 60 units of basal (Lantus 45 units + NPH 15 units) * 36 units of bolus with NovoLog * Fasting BSG today is 177 mg/dL. More than weight-based stress of 3 Adjusted body weight given in Lantus yesterday. Will go back to full weight-based stress of 3 for now. Patient did not require any additional Novolog overnight. * NPH given for steroid hyperglycemia - 0.4 units/kg of adjusted body weight. Titrate upwards as appropriate. * Continue Novolog 07/16 * Insulin infusion running @ 6.4 units/hr this morning, gave 45 units of lantus as patient had been eating * Solumedrol 40 mg BID being titrated to prednisone 40 mg daily tomorrow. Will reassess lantus/NPH dosing need tomorrow. * Insulin infusion was titrated off around lunch time, with an additional 15 units of NPH. Novolog currently dosed at weight based stress of 3 07/15 * 41 yo F with no prior treatment for diabetes due to tolerability and cost issues admitted with SOB/asthma exacerbation and also found to have a significantly elevated HbA1c. patient educator consult has been placed. * Steroids for asthma exacerbation ongoing and diet is ordered * BSG's remain >300 mg/dL x 4 checks despite a total of 13 units IV insulin, 24 units of Novolog, and 40 units of Lantus. * Discussed with Dr. Guerrero - initiate an insulin drip at this time. Patient may be able to be transitioned off quickly once the Lantus starts to kick in PLAN FOR INPATIENT GLYCEMIC CONTROL: * Basal insulin * Lantus 36 units daily * NPH 40 units SQ daily * Bolus insulin (once ready for drip transition) * NovoLog per scale ACHS (or Q6hrs while NPO) * Goal Range: 110-140 mg/dL * Correction Factor: 15 mg/dL/unit * Nutritional / Prandial insulin per carb ratio of 1 unit per 5 grams CHO consumed PLAN FOR DISCHARGE: * Lantus 24 units SQ daily ... recommend to follow up with primary care doctor for titration * Novolog * fixed dose of 5 units with meals of around ~35 grams of carbohydrates. May adjust as directed by physician. * Recommend CF of 20 for BSGs greater than 140 mg/dL. * Expect that patient's BSGs will be slightly high with steroids but insulin requirements will decrease once prednisone discontinued.
--- NOTE | 2021-07-17 14:38 | Discharge Summary ---
Date of Service July 17, 2021 Admission HPI Per Admitting Provider This is a 41-year-old female with past medical history significant for asthma, SLE, history of ITP, in remission, history of epistaxis, depression, hypothyroidism, diabetes, who presents with shortness of breath and also found to have hyperglycemia. The patient says she was on prednisone for a couple of years, recently stopped, but recently the patient was put back on tapered dose of prednisone for asthma. The last 2 weeks, she is having shortness of breath and cough, sometimes brings phlegm. At one point, she had fever. Her sob and cough was not getting better, so she came to the ER. She is having constant cough and she has some chest discomfort, like someone is sitting on the chest. No headache. Has some blurred visions. No earache. Has some runny nose for a couple of weeks. No sore throat, no difficulty swallowing. Appetite is okay. Ambulates okay. No abdominal pain. Normal bowel and bladder movements. Currently, saturating okay on room air, was slightly tachycardic. Admission Exam Per Admitting Provider GENERAL: The patient is morbidly obese, not in acute distress. VITAL SIGNS: Temperature 36.5, pulse 120, respiratory rate 23, blood pressure 132/82, oxygen 95% on room air. HEENT: Pupils equal, round, and reactive to light. Oral mucosa moist. NECK: No JVD, no neck masses. CARDIOVASCULAR: S1 and S2 heard, tachycardic. No murmurs. RESPIRATORY SYSTEM: Normal AP diameter. No accessory muscle use. Mild bilateral rhonchi. No wheezing. ABDOMEN: Soft, bowel sounds present, nontender, nondistended. CENTRAL NERVOUS SYSTEM: Cranial nerves II-XII grossly intact, nonfocal. EXTREMITIES: No edema, no erythema. Principal Diagnosis Asthma exacerbation Bronchitis New diagnosis diabetes mellitus Discharge Exam GENERAL: morbidly obese F, not in acute distress. HEENT: NC/AT, PERRL, EOMI NECK: No JVD, no neck masses. CARDIOVASCULAR: S1 and S2 heard, mildly tachycardic. No murmurs. RESPIRATORY: Normal AP diameter. No accessory muscle use. Mild bilateral rhonchi. No wheezing. ABDOMEN: Soft, bowel sounds present, nontender, nondistended. NEURO: Alert oriented answering questions appropriately, no facial asymmetry, speech fluent, moves extremities EXTREMITIES: No edema, no erythema. Discharge Data Allergies Allergy/AdvReac Type Severity Reaction Status Date / Time meloxicam Allergy Intermediate rash ~ Verified 07/14/21 20:34 lower back pain amoxicillin Allergy Mild METALLIC Verified 07/14/21 20:34 TASTE, NAUSEATED clavulanic acid Allergy Mild METALLIC Verified 07/14/21 20:34 TASTE, NAUSEATED Penicillins Allergy Unknown Unknown Verified 07/14/21 20:34 Consultations 07/14/21 21:56 ED Decision to Admit Stat Diabetes Follow up Diabetes Follow-up Needed for HgbA1c >9%,Newly Diagnosed Diabetes Hospital Course (1) Asthma: (2) Acute hyperglycemia: This is a 41-year-old female who presents with asthma exacerbation. 1. Asthma exacerbation: Failed outpt treatment. Started on with nebs around the clock and p.r.n. and [id number] bid and monitor the response. Clinically patient is already feeling better, breathing easier Switched to PO prednisone 40 daily, taper down on DC 2. Hyperglycemia. New diagnosis of DM type 2 The patient could not tolerate metformin and she was given some semaglutide, which insurance did not approve. She was not officially diagnosed with diabetes yet as outpt. Current Hemoglobin A1c 13.8% The patient is also getting steroids. She has been quite hyperglycemic on 07/15, and therefore needed to be started on IV insulin Glycemic pharmacy consulted and closely monitor. credit manager consulted as well. Patient reports history of gestational diabetes, and already has a glucometer at home. Also reports her sister has diabetes. Plan to DC on Lantus 24 units SQ daily (and closely follow up with primary care doctor for titration) Novolog 5 units with meals Expect that patient's BSGs will be slightly high with steroids but insulin requirements will decrease once prednisone discontinued. 3. SLE. Plaquenil and Imuran. 4. Depression: Continue Cymbalta. 5. Hypothyroidism: Continue Synthroid. Total Time Total Time Spent Total Time Spent (In Minutes): 40 Discharge Plan Discharge Items Patient Disposition: Home - Self-Care Reason For Visit: SOB Discharge Diagnosis: Asthma exacerbation Bronchitis New diagnosis diabetes mellitus Activity: Per Instructions section Non-emergency contact: Primary Care Provider Call non-emergency contact if: you have any medication questions and your symptoms worsen Follow-up/Referrals: Tiffany Hamilton MD [Primary Care Provider] - (Date & Time 07/21/2021 10:20 AM Provider Viridiana Sarabia MD Department General Internal [facility] ) Diet: Carb Consistent or DM2 Addtl Attending Provider Instructions: Follow up with your primary care doctor, the appointment was scheduled for you for July 21. You were diagnosed with diabetes. Make sure to check your blood sugar at home as recommended by tobacco sprayer. Make sure to record these values so your insulin can be further adjusted. Start using insulin as directed: Lantus daily, 24 units. And NovoLog 5 units with meals 3 times a day. You will need to follow-up with your primary care doctor to titrate your insulin. Finish prednisone tape as following: Take 40 mg for next 2 days, then take 20 mg for 3 days. Finish antibiotic, doxycycline for bronchitis. Pending Studies at Discharge: No Stand-Alone Forms: My [employer], Smoking Cessation Medications and DC Order Prescriptions: New doxycycline hyclate 100 mg Capsule 100 mg PO BID Qty: 10 RF: 0 guaifenesin 600 mg tablet extended release 12hr 600 mg PO BID PRN (Reason: congestion) Qty: 10 RF: 0 Lantus Solostar U-100 Insulin 100 unit/mL (3 mL) insulin pen 24 unit subcut DAILY Qty: 3 RF: 1 insulin aspart U-100 [Novolog Flexpen U-100 Insulin] 100 unit/mL (3 mL) insulin pen 5 unit subcut TID Qty: 3 RF: 0 prednisone 20 mg tablet 20 mg PO DAILY Qty: 5 RF: 0 prednisone 20 mg tablet 20 mg PO UD Qty: 7 RF: 0 potassium chloride 10 mEq capsule, extended release 10 meq PO DAILY Qty: 20 RF: 0 Continued levothyroxine 50 mcg tablet 25 mcg PO QAM RF: 0 albuterol sulfate 90 mcg/actuation HFA aerosol inhaler 2 puff inhalation Q4H PRN (Reason: Shortness Of Breath Or Wheezing) RF: 0 Dulera 200-5 mcg/actuation HFA aerosol inhaler 2 puff inhalation BID RF: 0 ferrous sulfate [iron] 325 mg (65 mg iron) Tablet 325 mg PO QAM RF: 0 ergocalciferol (vitamin D2) [Vitamin D2] 50,000 unit Capsule 50,000 unit PO 2XWK RF: 0 hydroxychloroquine [Plaquenil] 200 mg Tablet 400 mg PO HS RF: 0 docusate sodium [Colace] 100 mg capsule 100 mg PO BID Qty: 60 RF: 0 azathioprine [Imuran] 50 mg tablet 100 mg PO HS RF: 0 melatonin 3 mg tablet 3 mg PO HS PRN (Reason: Sleep) RF: 0 norethindrone (contraceptive) [Sharobel] 0.35 mg tablet 0.35 mg PO HS RF: 0 duloxetine [Cymbalta] 60 mg capsule,delayed release(DR/EC) 60 mg PO HS RF: 0 ondansetron 4 mg tablet,disintegrating 4 mg PO Q6H PRN (Reason: nausea and vomiting) Qty: 15 RF: 0 cyclobenzaprine 10 mg tablet 10 mg PO BID PRN (Reason: Muscle Spasm) RF: 0 meclizine [Dramamine Less Drowsy] 25 mg tablet 25 mg PO TID PRN (Reason: Dizziness) RF: 0 oxycodone [Roxicodone] 5 mg tablet 5 mg PO QAM RF: 0 Discharge Orders: Discharge Order (Routine); Ordered 07/17/21 Ordered By: Jose Guerrero Admission Data Admit Date/Time: 07/14/21 22:56 Attending Provider: Jose Guerrero Admit Provider: Lucas Holguin Primary Care Provider: Tiffany Hamilton Other Providers: Lucas Holguin
== END 2021-07-17 16:13 | disposition home or self-care (01) | DRG 202 ==
LOC: ED 17:30 → SUATTDRO 22:56 → EDINP 22:56 → 2N 07-15 18:15